=== PATIENT | male | born 1960 | race Two or more races ===

== ENCOUNTER 2020-06-04 14:25 | Outpatient (REF) | payer OTHER, SELFPAY | END 2020-06-04 14:26 | disposition home or self-care (01) | LOC: HO.BBR 14:25 | PROVIDERS: Visit Provider Internal Medicine Hematology | DX: D75.1 Secondary polycythemia (principal) | CPT/HCPCS: 85018; 99195 ==

== ENCOUNTER 2020-07-30 14:07 | Outpatient (REF) | payer OTHER, SELFPAY | END 2020-07-30 14:08 | disposition home or self-care (01) | LOC: HO.BBR 14:07 | PROVIDERS: Visit Provider Internal Medicine Hematology | DX: D75.1 Secondary polycythemia (principal) | CPT/HCPCS: 85014; 85018; 99195 ==

== ENCOUNTER 2020-10-01 14:00 | Outpatient (REF) | payer OTHER, SELFPAY | END 2020-10-01 14:01 | disposition home or self-care (01) | LOC: HO.BBR 14:00 | PROVIDERS: PCP Physician Assistant; Visit Provider Internal Medicine Hematology | DX: D75.1 Secondary polycythemia (principal) | CPT/HCPCS: 85014; 85018; 99195 ==

== ENCOUNTER 2020-12-03 14:30 | Outpatient (REF) | payer OTHER, SELFPAY | END 2020-12-03 14:31 | disposition home or self-care (01) | LOC: HO.BBR 14:30 | PROVIDERS: Visit Provider Internal Medicine Hematology | DX: D75.1 Secondary polycythemia (principal) | CPT/HCPCS: 36415; 85018; 99195 ==

== ENCOUNTER 2021-01-28 13:40 | Outpatient (REF) | payer OTHER, SELFPAY | END 2021-01-28 13:41 | disposition home or self-care (01) | LOC: HO.BBR 13:40 | PROVIDERS: Visit Provider Internal Medicine Hematology | DX: D75.1 Secondary polycythemia (principal) | CPT/HCPCS: 36415; 85018; 99195 ==

== ENCOUNTER 2021-03-02 13:48 | Outpatient (REF) | payer OTHER, SELFPAY | END 2021-03-02 13:49 | disposition home or self-care (01) | LOC: HO.BBR 13:48 | PROVIDERS: Visit Provider Internal Medicine Hematology | DX: D75.1 Secondary polycythemia (principal) | CPT/HCPCS: 85014; 85018; 99195 ==

== ENCOUNTER 2021-04-05 13:51 | Outpatient (REF) | payer OTHER, SELFPAY | END 2021-04-05 13:52 | disposition home or self-care (01) | LOC: HO.BBR 13:51 | PROVIDERS: Visit Provider Internal Medicine Hematology | DX: D75.1 Secondary polycythemia (principal) | CPT/HCPCS: 36415; 85018; 99195 ==

== ENCOUNTER 2021-05-13 12:51 | Outpatient (REF) | payer OTHER, SELFPAY | END 2021-05-13 12:52 | disposition home or self-care (01) | LOC: HO.BBR 12:51 | PROVIDERS: Visit Provider Internal Medicine Hematology | DX: D75.1 Secondary polycythemia (principal) | CPT/HCPCS: 85018; 99195 ==

== ENCOUNTER 2021-06-17 12:39 | Outpatient (REF) | payer OTHER, SELFPAY | END 2021-06-17 12:40 | disposition home or self-care (01) | LOC: HO.BBR 12:39 | PROVIDERS: Visit Provider Internal Medicine Hematology | DX: D75.1 Secondary polycythemia (principal) | CPT/HCPCS: 85018 ==

== ENCOUNTER 2021-07-21 12:32 | Outpatient (REF) | payer OTHER, SELFPAY | END 2021-07-21 12:33 | disposition home or self-care (01) | LOC: HO.BBR 12:32 | PROVIDERS: Visit Provider Internal Medicine Hematology | DX: D75.1 Secondary polycythemia (principal) | CPT/HCPCS: 85018; 99195 ==

== ENCOUNTER 2021-08-19 13:43 | Outpatient (REF) | payer OTHER, SELFPAY | END 2021-08-19 13:44 | disposition home or self-care (01) | LOC: HO.BBR 13:43 | PROVIDERS: Visit Provider Internal Medicine Hematology | DX: D75.1 Secondary polycythemia (principal) | CPT/HCPCS: 85014; 85018; 99195 ==

== ENCOUNTER 2021-11-17 12:54 | Outpatient (REF) | payer OTHER, SELFPAY | END 2021-11-17 12:55 | disposition home or self-care (01) | LOC: HO.BBR 12:54 | PROVIDERS: Visit Provider Internal Medicine Hematology | DX: D75.1 Secondary polycythemia (principal) | CPT/HCPCS: 85018; 99195 ==

== ENCOUNTER 2021-12-21 12:48 | Outpatient (REF) | payer OTHER, SELFPAY | END 2021-12-21 12:49 | disposition home or self-care (01) | LOC: HO.BBR 12:48 | PROVIDERS: Visit Provider Internal Medicine Hematology | DX: D75.1 Secondary polycythemia (principal) | CPT/HCPCS: 85018; 99195 ==

== ENCOUNTER 2022-02-01 13:08 | Outpatient (REF) | payer OTHER, SELFPAY | END 2022-02-01 13:09 | disposition home or self-care (01) | LOC: HO.BBR 13:08 | PROVIDERS: Visit Provider Internal Medicine Hematology | DX: D75.1 Secondary polycythemia (principal) | CPT/HCPCS: 85014; 85018; 99195 ==

== ENCOUNTER 2022-03-17 13:51 | Outpatient (REF) | payer OTHER, SELFPAY | END 2022-03-17 13:52 | disposition home or self-care (01) | LOC: HO.BBR 13:51 | PROVIDERS: Visit Provider Internal Medicine Hematology | DX: D75.1 Secondary polycythemia (principal) | CPT/HCPCS: 85014; 85018; 99195 ==

== ENCOUNTER 2022-04-28 13:02 | Outpatient (REF) | payer OTHER, SELFPAY | END 2022-04-28 13:03 | disposition home or self-care (01) | LOC: HO.BBR 13:02 | PROVIDERS: Visit Provider Internal Medicine Hematology | DX: D75.1 Secondary polycythemia (principal) | CPT/HCPCS: 85014; 99195 ==

== ENCOUNTER 2022-06-09 11:55 | Outpatient (REF) | payer OTHER, SELFPAY | END 2022-06-09 11:56 | disposition home or self-care (01) | LOC: HO.BBR 11:55 | PROVIDERS: Visit Provider Internal Medicine Hematology | DX: Z13.89 Encounter for screening for other disorder (principal) | CPT/HCPCS: 85018; 99195 ==

== ENCOUNTER 2022-07-25 12:41 | Outpatient (REF) | payer OTHER, SELFPAY | END 2022-07-25 12:42 | disposition home or self-care (01) | LOC: HO.BBR 12:41 | PROVIDERS: Visit Provider Internal Medicine Hematology | DX: D75.1 Secondary polycythemia (principal) | CPT/HCPCS: 85014; 99195 ==

== ENCOUNTER 2022-09-05 13:21 | Outpatient (REF) | payer OTHER, SELFPAY | END 2022-09-05 13:22 | disposition home or self-care (01) | LOC: HO.BBR 13:21 | PROVIDERS: Visit Provider Internal Medicine Hematology | DX: D75.1 Secondary polycythemia (principal) | CPT/HCPCS: 85014 ==

== ENCOUNTER 2022-10-18 13:23 | Outpatient (REF) | payer OTHER, SELFPAY | END 2022-10-18 13:24 | disposition home or self-care (01) | LOC: HO.BBR 13:23 | PROVIDERS: Visit Provider Internal Medicine Hematology | DX: D75.1 Secondary polycythemia (principal) | CPT/HCPCS: 85014; 85018; 99195 ==

== ENCOUNTER 2022-12-07 12:57 | Outpatient (REF) | payer MEDICAID, SELFPAY | END 2022-12-07 12:58 | disposition home or self-care (01) | LOC: HO.BBR 12:57 | PROVIDERS: Visit Provider Internal Medicine Hematology | DX: D75.1 Secondary polycythemia (principal) | CPT/HCPCS: 85014; 99195 ==

== ENCOUNTER 2023-01-30 11:30 | Outpatient (REF) | payer MEDICAID, SELFPAY | END 2023-01-30 11:31 | disposition home or self-care (01) | LOC: HO.BBR 11:30 | PROVIDERS: Visit Provider Internal Medicine Hematology | DX: D75.1 Secondary polycythemia (principal) | CPT/HCPCS: 85018; 99195 ==

== ENCOUNTER 2023-03-13 11:40 | Outpatient (REF) | payer MEDICAID, SELFPAY | END 2023-03-13 11:41 | disposition home or self-care (01) | LOC: HO.BBR 11:40 | PROVIDERS: Visit Provider Internal Medicine Hematology | DX: D75.1 Secondary polycythemia (principal) | CPT/HCPCS: 85018; 99195 ==

== ENCOUNTER 2023-04-24 13:23 | Outpatient (REF) | payer MEDICAID, SELFPAY | END 2023-04-24 13:24 | disposition home or self-care (01) | LOC: HO.BBR 13:23 | PROVIDERS: Visit Provider Internal Medicine Hematology | DX: D75.1 Secondary polycythemia (principal) | CPT/HCPCS: 85018; 99195 ==

== ENCOUNTER 2023-06-12 12:40 | Outpatient (REF) | payer MEDICAID, SELFPAY | END 2023-06-12 12:41 | disposition home or self-care (01) | LOC: HO.BBR 12:40 | PROVIDERS: Visit Provider Internal Medicine Hematology | DX: D75.1 Secondary polycythemia (principal) | CPT/HCPCS: 85018; 99195 ==

== ENCOUNTER 2023-07-24 12:38 | Outpatient (REF) | payer MEDICAID, SELFPAY | END 2023-07-24 12:39 | disposition home or self-care (01) | LOC: HO.BBR 12:38 | PROVIDERS: Visit Provider Internal Medicine Hematology | DX: D75.1 Secondary polycythemia (principal) | CPT/HCPCS: 85018; 99195 ==

== ENCOUNTER 2023-09-04 12:55 | Outpatient (REF) | payer MEDICAID, SELFPAY | END 2023-09-04 12:56 | disposition home or self-care (01) | LOC: HO.BBR 12:55 | PROVIDERS: Visit Provider Internal Medicine Hematology | DX: D75.1 Secondary polycythemia (principal) | CPT/HCPCS: 85014; 85018; 99195 ==

== ENCOUNTER 2023-10-17 12:34 | Outpatient (REF) | payer MEDICAID, SELFPAY | END 2023-10-17 12:35 | disposition home or self-care (01) | LOC: HO.BBR 12:34 | PROVIDERS: Visit Provider Internal Medicine Hematology | DX: D75.1 Secondary polycythemia (principal) | CPT/HCPCS: 85018 ==

== ENCOUNTER 2023-12-20 12:46 | Outpatient (REF) | payer MEDICARE, MEDICAID, SELFPAY | END 2023-12-20 12:47 | disposition home or self-care (01) | LOC: HO.BBR 12:46 | PROVIDERS: Visit Provider Internal Medicine Hematology | DX: D75.1 Secondary polycythemia (principal) | CPT/HCPCS: 85014; 85018; 99195 ==

== ENCOUNTER 2024-02-19 12:36 | Outpatient (REF) | payer MEDICARE, MEDICAID, SELFPAY | END 2024-02-19 12:37 | disposition home or self-care (01) | LOC: HO.BBR 12:36 | PROVIDERS: Visit Provider Internal Medicine Hematology | DX: D75.1 Secondary polycythemia (principal) | CPT/HCPCS: 85014; 85018; 99195 ==

== ENCOUNTER 2024-04-15 12:54 | Outpatient (REF) | payer MEDICARE, MEDICAID, SELFPAY | END 2024-04-15 12:55 | disposition home or self-care (01) | LOC: HO.BBR 12:54 | PROVIDERS: Visit Provider Internal Medicine Hematology | DX: D75.1 Secondary polycythemia (principal) | CPT/HCPCS: 85014; 85018; 99195 ==

== ENCOUNTER 2024-06-17 12:58 | Outpatient (REF) | payer MEDICAID, SELFPAY | END 2024-06-17 12:59 | disposition home or self-care (01) | LOC: HO.BBR 12:58 | PROVIDERS: Visit Provider Internal Medicine Hematology | DX: D75.1 Secondary polycythemia (principal) | CPT/HCPCS: 85018; 99195 ==

== ENCOUNTER 2024-08-19 12:35 | Outpatient (REF) | payer MEDICARE, MEDICAID, SELFPAY | END 2024-08-19 12:36 | disposition home or self-care (01) | LOC: HO.BBR 12:35 | PROVIDERS: Visit Provider Internal Medicine Hematology | DX: D75.1 Secondary polycythemia (principal) | CPT/HCPCS: 85014; 85018; 99195 ==

== ENCOUNTER 2024-10-25 08:55 | Outpatient (REF) | payer MEDICARE, MEDICAID, SELFPAY ==
--- OUTSIDE RECORDS SUMMARY | 2024-10-25 09:23 | XMS_ITS | Clinical Summary ---
Author Organization [facility] Address [address] [place] [phone] Care Team Providers Care Nutrition Services Assistant Name Role Phone Bronwyn Albert Primary Care Provider Family History Medical History Relation Name Comments Autoimmune disease Neg Hx Breast cancer Neg Hx Colon cancer Neg Hx Coronary artery disease Neg Hx Diabetes Neg Hx Heart attack Neg Hx Heart failure Neg Hx Hyperlipidemia Neg Hx Hypertension Neg Hx Mental illness Neg Hx Prostate cancer Neg Hx Sleep apnea Neg Hx Thyroid disease Neg Hx Social History Tobacco Use Types Packs/Day Years Used Date Smoking Tobacco: Never Smokeless Tobacco: Never Alcohol Use Standard Drinks/Week Comments Not Asked 0 (1 standard drink = 0.6 oz pur e alcohol) Sex and Gender Information Value Date Recorded Sex Assigned at Not on file Legal Sex Male 6:21 AM EST Gender Identity Not on file Sexual Orientation Not on file Obstetrics History Plan of Treatment Health Maintenance Due Date Last Done Comments DTaP,Tdap,and Td Vaccines (1 - Tdap) 1977 Pneumococcal Vaccine: 50+ Ye ars (1 of 1 - PCV) 2008 Zoster Vaccines (1 of 2) 2008 COVID-19 Vaccine ( - 2023-2 5 season) 2024 Influenza Vaccine (#1) 2024 RSV Immunization Patients 60 + Years Old (1 - 1-dose 75+ series) 2033 HIB Vaccines Aged Out No longer eligi ble based on patient's age to complete this topic HPV Vaccines Aged Out No longer eligi ble based on patient's age to complete this topic Hepatitis A Vaccines Aged Out No long er eligible based on patient's age to complete this topic Hepatitis B Vaccines Aged Out No long er eligible based on patient's age to complete this topic IPV Vaccines Aged Out No longer eligi ble based on patient's age to complete this topic MMR Vaccines Aged Out No longer eligi ble based on patient's age to complete this topic Meningococcal ACWY Vaccine Aged Out N o longer eligible based on patient's age to complete this topic Meningococcal B Vacine Aged Out No lo nger eligible based on patient's age to complete this topic Pneumococcal Vaccine: Pediat rics (0 to 5 Years) and At-Risk Patients (6 to 64 Years) Aged Out No longer eligible b ased on patient's age to complete this topic RSV Immunization Patients Un julisa 20 months Aged Out No longer eligible b ased on patient's age to complete this topic Varicella Vaccines Aged Out No longer eligible based on patient's age to complete this topic Care Teams Nutrition Services Assistant Relationship Specialty Start Date End Date Bronwyn Albert PA [address] [place] [address] PCP - General Internal Medicine 01/19/10
--- OUTSIDE RECORDS SUMMARY | 2024-10-25 09:23 | XMS_ITS | Encounter Summary ---
Author Organization [facility] Address [address] [place] [address] Care Team Providers Care Physical Metallurgist Name Role Phone Bronwyn Albert PA-C Primary Care Provider + [phone] Reason for Visit * Reason Comments Correspondence [facility] Encounter Details Date Type Department Care Team ([facility] Contact Info) Description 01/26/2016 Interim Notes [address] [phone] Ping Amaro [phone] [place] [address] Social History Tobacco Use Types Packs/Day Years Used Date Smoking Tobacco: Never Smokeless Tobacco: Never Alcohol Use Standard Drinks/Week Comments No 0 (1 standard drink = 0.6 oz pur e alcohol) Sex and Gender Information Value Date Recorded Sex Assigned at Male 06/15/2017 7:21 PM PDT Legal Sex Male 11:36 AM PDT Gender Identity Male 06/15/2017 7:21 PM PDT Sexual Orientation Straight 06/15/2017 7: 21 PM PDT documented as of this encounter Plan of Treatment Upcoming Encounters Date Type Department Care Team (Late Contact Info) Description 12/13/2024 1:20 PM EDT Office Visit [address] [phone] Vicente Connor, RadhaD [facility] [place] [address] Cynthia Hackett [address] [place] [address] documented as of this encounter Visit Diagnoses Not on filedocumented in this encounter Additional Health Concerns Infection Onset Date Last Indicated Resolved Time COVID-19 Comment:Added automatically based on visit diagnosis/problem list. 08/13/2020 08/13/2020 11/11/2020 7:10 PM PDT documented as of this encounter Care Teams Physical Metallurgist Relationship Specialty Start Date End Date Bronwyn Albert PA-C [address] [place] [phone] PCP - General Internal Medicine 10/30/13 documented as of this encounter
--- OUTSIDE RECORDS SUMMARY | 2024-10-25 09:23 | XMS_ITS | Encounter Summary ---
Author Organization [facility] Address [address] [place] [address] Care Team Providers Care Leather Dresser Name Role Phone Bronwyn Albert PA-C Primary Care Provider + [phone] Reason for Visit * Reason Comments Hypertension Encounter Details Date Type Department Care Team ([facility] st Contact Info) Description 10/17/2024 10:00 AM EST Office Visit [facility] [address] [place] [address] Vicente Connor, PharmD [address] [place] [address] Cynthia Hackett [address] [place] [address] Essential hypertension, benign (Primary Dx); History of stroke; Class 2 severe obesity due to excess calories with serious comorbidity and body mass index (BMI) of 35.0 to 35.9 in adult ([facility]); Medication management Social History Tobacco Use Types Packs/Day Years Used Date Smoking Tobacco: Never Smokeless Tobacco: Never Tobacco Cessation:Counseling Given: Not Answered Alcohol Use Standard Drinks/Week Comments No 0 (1 standard drink = 0.6 oz pur e alcohol) Social Connections Answer Date Recorded Connectedness 1 03/06/2024 Financial Resource Strain Answer Date R ecorded Financial Resource Strain 1 2023 Stress Answer Date Recorded Stress 03/06/2024 Physical Activity Answer Date Recorded Physical Activity 0 04/17/2019 Food Insecurity Answer Date Recorded Food 1 03/06/2024 Transportation Needs Answer Date Record ed Transportation 03/06/2024 Housing Stability Answer Date Recorded Housing 1 03/06/2024 Safety and Environment Answer Date Mesfin rded Safety 0 04/17/2019 Utilities Answer Date Recorded Utilities 1 03/06/2024 Employment Answer Date Recorded Stress 0 03/06/2024 Sex and Gender Information Value Date Recorded Sex Assigned at Male 06/15/2017 7:21 PM PDT Legal Sex Male 11:36 AM PDT Gender Identity Male 06/15/2017 7:21 PM PDT Sexual Orientation Straight 06/15/2017 7: 21 PM PDT documented as of this encounter Last Filed Vital Signs Vital Sign Reading Time Taken Comments Blood Pressure 138/88 10/17/2024 10:08 AM EST Pulse 60 10/17/2024 10:08 AM EST Temperature - - Respiratory Rate 16 10/17/2024 10:08 AM EST Oxygen Saturation 97% 10/17/2024 10:08 AM EST Inhaled Oxygen Concentration - - Weight 98.9 kg (218 lb) 10/17/2024 10:08 AM EST Height 167.6 cm (5' 6 ) 10/17/2024 10:08 AM EST Body Mass Index 35.19 10/17/2024 10:08 AM EST documented in this encounter Progress Notes * Radha ArthurD - 10/17/2024 10:15 AM EST Bereket Mchugh is a 63 year old, [place]ib[place]ian-speaking male who presents today for a follow-up visitin Hypertension Clinic with Radha ArthurD. Referred by Bronwyn Albert PA-C. Cynthia Hackett (Djiboutian/Stateless) interpreted for today's visit. is present and assisting with interpretation during this in-person visit. Accompanied by: None HPI: Patient reports: Endorses use of anti-hypertensive medications daily as directed, denies missing doses or taking extra doses. Experiencing left-sided chest discomfort 3 days ago, lasting for 1-5 minutes. Reports occurring around noontime. Reports possibly due to cold weather and changes in weather. Denies any recent anxiety. Continues to monitor BP twice daily, brings in BP log. Reports monitoring BP in the morning 1 hour after anti-hypertensive medications. Continues to follow low-sodium diet. Hx of JULIA, although reports hx of intolerance to multiple CPAP machines, therefore is currently nottreated for JULIA. Reports sleeping well during the night. No hx of US renal (referral sent 10/09/17, pt denies completing) or metanephrines. No records from [facility] since 2019. New concerns: None ROS (last 1-2 weeks): Chest pain/chest tightness Yes see patient reports , dizziness/lightheadedness No, shortness of breath No, blurry vision No, headaches No, palpitations No, peripheral edema No. 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 ASCVD Patient has the following risk factors/co-morbidities for hypertension: Dyslipidemia, Family History, Obesity, and Stroke Hx of stroke/NM/HF/CAD? yes 2 strokes (2000, 2001) Family cardiac hx: father HTN Tobacco Use: Former Smoker: Quit 40 years ago Tobacco Intervention:provided smoking cessation counseling Alcohol Use: No alcohol use Pharmacotherapy: Current anti-hypertensive pharmacological regimen: HCTZ 25 mg daily in AM Valsartan 320 mg daily every evening Spironolactone 25 mg daily in AM Previous anti-hypertensives and reason for discontinuation: Valsartan-HCTZ (D/C 09/12/24) due to components Metoprolol tartrate (D/C 09/12/24) due to bradycardia/lack of benefit in post- stroke patients Amlodipine (D/C 10/03/23) due to possible adverse events Olmesartan-HCTZ (D/C 09/18/23) due to possible cause of skin rash , transitioned to valsartan-HCTZ Metoprolol succinate (D/C 07/17/23) due to bradycardia/lack of benefit in post- stroke patients Valsartan-HCTZ (D/C 02/19/21) due to unclear reason, transitioned to olmesartan-HCTZ Lisinopril-HCTZ (D/C 02/16/21) due to c/o lower lip swelling, transitioned to valsartan-HCTZ Additional OTC medications or supplements: None Home BP monitoring: Patient reports checking blood pressure at home 2 times per day. BP readings: 10/15/24 AM: 138/82 mmHg 60 bpm; PM: 145/85 mmHg 62 bpm 10/14/24 AM: 131/79 mmHg 59 bpm; PM: 138/82 mmHg 60 bpm 10/13/24 AM: 149/86 mmHg 58 bpm; PM: 129/80 mmHg 65 bpm 10/12/24 AM: 144/81 mmHg 61 bpm; PM: 152/89 mmHg 58 bpm 10/11/24 AM: 129/86 mmHg 69 bpm; PM: 149/90 mmHg 61 bpm OBJECTIVE Last 3 BP Readings: Date: BP: 10/17/2024 138/88 09/12/2024 130/80 08/13/2024 124/72 Wt Readings from Last 3 Encounters: 10/17/24 218 lb (98.9 kg) 09/12/24 217 lb (98.4 kg) 08/13/24 213 lb (96.6 kg) Allergies reviewed: Allergies Allergen Reactions Sanchez Inhibitors 02/16/2021 c/o lower lip swelling Amlodipine Lip swelling Ibuprofen SOB Topiramate Rash Dust Other Severe Estimated Creatinine Clearance: 83.3 mL/min (by C-G formula based on SCr of 0.98 mg/dL). Lab Results Component Value Date NA 139 03/06/2024 K 3.8 03/06/2024 BUN 13 03/06/2024 BUNCREAT SEE NOTE: 03/06/2024 CREATININE 0.98 03/06/2024 EGFR 86 03/06/2024 Lab Results Component Value Date TSH 1.70 03/06/2024 Lab Results Component Value Date TRIGLYC 270 (H) 03/06/2024 CHOL 178 03/06/2024 HDL 45 03/06/2024 LDL 94 03/06/2024 CHOLHDL 4.0 03/06/2024 NONHDL 133 (H) 03/06/2024 The ASCVD Risk score (Marii YI, et al., 2019) failed to calculate for the following reasons: Risk score cannot be calculated because patient has a medical history suggesting prior/existing ASCVD ASSESSMENT BP target: Per ACC/AHA guidelines, for older adults (=65 years of age) with hypertension and a highburden of comorbidity and limited life expectancy, clinical judgment, patient preference, and a team-based approach to assess risk/benefit is reasonable for decisions regarding intensity of BP lowering and choice of antihypertensive drugs. Hypertension - slightly uncontrolled No medication therapy problems identified Na, K, Ca, Scr, eGFR: WNL as of 03/06/24 BP monitorin times per week PLAN I10 Essential hypertension, benign (primary encounter diagnosis) Hypertension - slightly uncontrolled. Counseled patient to monitor BP two times daily and document in BP log. Will reach out to PCP regarding issuing US renal and metanephrines to rule out secondary causes of HTN. Patient has hx of JULIA, intolerance to CPAP. Pharmacologic RX: HCTZ 25 mg daily in AM Valsartan 320 mg daily every evening Spironolactone 25 mg daily in AM If BP hypertensive, next step: increase spironolactone to 50 mg daily Z86.73 History of stroke Stable, continue aspirin 81 mg daily and rosuvastatin 10 mg daily at bedtime. E66.812,E66.01,Z68.35 Class 2 severe obesity due to excess calories with serious comorbidity and body mass index (BMI) of 35.0 to 35.9 in adult ([facility]) Lifestyle measures:BMI follow up plan: The patient was counseled regarding nutrition and physical activity. Counseled patient on importance of diet and lifestyle (weight loss, low-sodium (STALLWORTH) diet,decrease carbohydrates such as rice, bread, pasta and corn meal, increase non-starchy vegetables, no potatoes or corn, increase protein, and increase physical activity with at least 150 minutes of moderate physical activity per week). Z79.899 Medication management Medications reviewed and reconciled with patient. Follow-up appt scheduled on 12/13/24 @1:20 PM. EDUCATION PROVIDED: Counseled patient to continue lifestyle modifications: weight reduction, diet, and exercise/physical activity. Proper conditions for taking blood pressure. Factors to also consider that may affect BP include, smoking, caffeine, alcohol use, pain, and exercise. Seeking emergency treatment if persistent chest pain, blurry vision, and/or palpitations and BP >180/110 mmHg. Medication(s): (indication, dosage, administration, storage, side effects, missing dose) Production Control Coordinating Clerk Complications of Uncontrolled Hypertension Vicente Connor PharmD documented in this encounter Miscellaneous Notes * Patient Instructions - Vicente Connor PharmD - 10/17/2024 10:38 AM EST William Connor PharmD, [facility] Clinical Pharmacist Press 1 for Malay Enter extension [phone] They will not ask you what extension you want to reach, so just enter extension. You may leave me a message if I do not answer. Please state your name, date of and call back number If you are not able to keep your appointment please call 24-48 hours before your appointment to cancel or reschedule. documented in this encounter Plan of Treatment Upcoming Encounters Date Type Department Care Team (Late st Contact Info) Description 12/13/2024 1:20 PM EDT Office Visit [facility] [address] [place] [phone] Vicente Connor PharmD [address] [place] [phone] Cynthia Hackett [address] [place] [address] documented as of this encounter Visit Diagnoses Diagnosis Essential hypertension, benign- Primary History of stroke Transient ischemic attack (TIA), and cerebral infarction without residual deficits Class 2 severe obesity due to excess calories with serious comorbidity and body mass index (BMI) of 35.0 to 35.9 in adult ([facility]) Medication management Encounter for long-term (current) use of other medications documented in this encounter Additional Health Concerns Assessment Noted Time PHQ-9 Depression Total Score: 0 03/06/20 24 10:09 AM PDT documented as of this encounter Care Teams Leather Dresser Relationship Specialty Start Date End Date Bronwyn Albert PA-C [facility] [place] [phone] PCP - General Internal Medicine 10/30/13 documented as of this encounter
--- OUTSIDE RECORDS SUMMARY | 2024-10-25 09:23 | XMS_ITS | Clinical Summary ---
Author Organization [facility] Address [address] [place] [address] Care Team Providers [facility] Account Liaison Name Role Phone Bronwyn Albert PA-C Primary Care Provider [phone] Source Comments PLEASE NOTE, if this patient is a minor, it may be UNLAWFUL to discuss sensitive information that is contained in these records (such as FAMILY PLANNING, MENTAL HEALTH or SUBSTANCE ABUSE) with the minor patient's parent or other person without the patient's specific authorization.[facility] Allergies Active Allergy Reactions Criticality Noted Date Comments Sanchez Inhibitors High 02/16/2021 02/16/2021 c/o lower lip swelling Amlodipine High 10/03/2023 Lip swelling Dust Other Severe 01/23/2014 Ibuprofen SOB High 05/15/2013 Topiramate Rash High 05/15/2013 Medic[address] aspirin [address] tabletIndication s:Essential hypertension Take 1 Tablet by mouth once daily 90 Tablet 3 3 Active EPINEPHrine (EPIPEN) 0.3 mg/0.3 mL pen injectorIndicati ons:Angiotensin converting enzyme inhibitor-aggrav ated angioedema, initial encounter Inject 0.3 mL into the muscle as needed for anaphylaxis 2 Each 3 3 Active aspirin-acetamin ophen-caffeine (EXCEDRIN MIGRAINE) 250-250-65 mg per tabletIndication s:Mixed headache Take 1 Tablet by mouth 3 (three) times daily No allergy to aspirin 90 Tablet 4 4 Active rosuvastatin (CRESTOR) 10 mg tabletIndication s:Pre-diabetes TAKE 1 TABLET BY MOUTH EVERY NIGHT AT BEDTIME 90 Tablet 3 4 Active loratadine (CLARITIN) 10 mg tabletIndication s:Urticaria Take 1 Tablet by mouth nightly at bedtime 90 Tablet 1 4 Active cyanocobalamin (VITAMIN B-12) 1,000 mcg/mL injectionIndicat ions:Low serum vitamin B12 INJECT 1 ML INTO THE SKIN EVERY 3 MONTHS 10 mL 11 4 Active rizatriptan (MAXALT) 5 mg tabletIndication s:Mixed headache TAKE 1 TABLET BY MOUTH 1 TIME FOR UP TO 1 DOSE NEEDED FOR MIGRAINE 9 Tablet 11 4 Active BD LUER-BENY SYRINGE 3 mL 25 gauge x 1 Indications:Lo w serum vitamin B12 USE EVERY MONTH FOR B12 INJECTION 1 Each 11 4 Active omeprazole (PRILOSEC) [address] capsuleIndicatio ns:Dyspepsia TAKE 1 CAPSULE BY MOUTH TWICE DAILY. DO NOT CRUSH OR CHEW 180 Capsule 2 4 Active lidocaine (LIDODERM) 5 % patch Apply 1 patch to the affected area for a maximum of 12 hours, followed by removal for 12 hours. 30 Patch 4 4 Active diclofenac sodium (VOLTAREN) 1 % gel Apply 2 g topically 2 (two) times daily 100 g 11 4 Active ciclopirox (PENLAC) 8 % solution 4 Active betamethasone valerate (VALISONE) 0.1 % creamIndications :Dyshidrotic eczema APPLY THIN LAYER TOPICALLY TO THE AFFECTED AREA TWICE DAILY 90 g 3 4 Active magnesium oxide (MAG-OX) 400 mg (241.3 mg magnesium) tablet Take 1 Tablet by mouth once daily 4 Active GAVILYTE-G 236-22.74-6.74 -5.86 gram solution 5 Active vitamin B complex capsule Take 1 Capsule by mouth once daily 4 Active lidocaine (XYLOCAINE) 5 % oint APPLY TOPICALLY TO THE AFFECTED AREA THREE TIMES DAILY 4 Active valsartan (DIOVAN) 320 mg tabletIndication s:Essential hypertension, benign Take 1 Tablet by mouth every evening stop valsartan-HCTZ combination 90 Tablet 1 5 Active hydroCHLOROthiaz esau (HYDRODIURIL) 25 mg tabletIndication s:Essential hypertension, benign Take 1 Tablet by mouth every morning stop valsartan-HCTZ combination 90 Tablet 1 5 Active spironolactone (ALDACTONE) 25 mg tabletIndication s:Essential hypertension, benign Take 1 Tablet by mouth every morning For blood pressure. 90 Tablet 1 5 Active clonazePAM (KLONOPIN) 1 mg tabletIndication s:Anxiety and depression TAKE 1 TABLET BY MOUTH TWICE DAILY 60 Tablet 2 5 Active Active Problems Problem Noted Date Diagnosed Date History of stroke 06/07/2023 Overview (06/07/2023): 2000 & 2001 per patient reports History of COVID-19 07/22/2020 05/26/2021 B12 deficiency due to diet 02/16/2021 Right upper lobe of lung [place] chest 07/22/2020 (incidenal finding with COVID19 hospitalization(, repeat 3 months 08/13/2020 Chronic seasonal allergic rhinitis due to pollen 06/15/2017 Lumbar disc disease 06/15/2017 Primary osteoarthritis involving multiple joints 07/06/2016 Pre-diabetes 01/29/2015 Right shoulder pain, x-ray 12/24/2014 12/28/2014 Overview (11/10/2017): Result type: MRI Joint Ext Upper W/O Contrast Right Result date: 07 February 2015 12:23 Result status: Auth (Verified) Result title: MRI Joint Ext Upper W/O Contrast Right Performed by: Ankit Galindo MD on 09 February 2015 11:16 Verified by: Ankit Galindo MD on 09 February 2015 11:16 Encounter info: [id number], [facility], [facility], 02/07/2015 - 02/14/2015 * Final Report * Reason For Exam ? RCT PAIN/INSTABILITY;? RCT PAIN/INSTABILITY RESULT: MRI Joint Ext Upper W/O Contrast Right [facility] VISIT NUMBER :[id number] Patient Name : Abby Salazar Date of : 1960 Date of Exam : 02/07/2015 Referring Physician : JOSHUA ORDONEZ [address], Attn: [place] [address] Exam : MR - SHOULDER (C-) CPT 90157 - RIGHT Room Description : [facility] 2 1.5 Technique : Ax PD Fsat, Cor T2, Cor PD Fsat, Sag PD Fsat, Sag T1 Final Report Shoulder MRI Clinical History: Shoulder pain. Instability Findings: There is a moderate degree of degenerative change of the acromioclavicular joint. Capsular hypertrophy and spurring is noted at the AC joint. There is a small subacromial/subdeltoid bursitis. Full-thickness tear involving mid footprint fibers of the supraspinatus tendon on image 12 of series 5. Tear extends posteriorly as a partial-thickness articular surface tear. In aggregate the tear measures approximately 1.1 cm AP. Maximum retraction of approximately 0.5 cm. The infraspinatus tendon is intact. There is infraspinatus tendinopathy. The teres minor tendon is intact . Limited evaluation of the subscapularis tendon due to motion on the axial images. Grossly the subscapularis tendon is intact with possible intermediate to high grade perforating type tears along the articular surface at the level of the coracohumeral interval on image 8 of series 6. The long head of the biceps tendon is intact. Tendinopathy is noted within the intra-articular portion. The glenoid labrum is not well evaluated on this non-arthrogram MR, but appears grossly intact . Impression: Full-thickness tear of the supraspinatus tendon as outlined above. Infraspinatus tendinopathy. Limited evaluation of the subscapularis tendon due to motion on the axial images. Within this limitation, possible intermediate to high-grade perforating type tears are noted within distal subscapularis tendon fibers on the images outlined above. Tendinopathy within the intra-articular portion of the biceps tendon ----- PHYSICIAN : ANKIT GALINDO (Signature on file) 02/09/2015 Signature Line Dictated By: Ankit Galindo MD Dictated Date/Time: 02/09/15 11:16 a Reviewed By: Ankit Galindo MD Signed By: Ankit Galindo MD Signed Date/Time: 02/09/15 11:16 am Transcribed By: TS Transcribed Date/Time: 02/09/15 11:16 am MRI Joint Ext Upper W/O Contrast Right This document has an image Result type: Shoulder Min 2 Views Right Result date: 24 December 2014 11:06 Result status: Auth (Verified) Result title: Shoulder Min 2 Views Right Performed by: Amalia Walters MD on 24 December 2014 11:14 Verified by: Amalia Walters MD on 24 December 2014 11:14 Encounter info: [id number], [facility], One Time OP, 12/24/2014 - 12/24/2014 * Final Report * Reason For Exam shoulder pain RESULT: Shoulder Min 2 Views Right Shoulder Min 2 Views Right INDICATION: shoulder pain COMPARISON: There are no prior studies available for comparison. FINDINGS: There is no evidence of acute displaced fracture or glenohumeral dislocation. There is mild acromioclavicular degenerative change bony proliferation of the distal clavicle. There is smooth periosteal new bone formation at the lateral proximal humeral diaphysis, likely reflecting enthesopathy at the deltoid attachment. No radiopaque foreign bodies. IMPRESSION: 1. No evidence of acute displaced fracture. 2. Mild acromioclavicular degenerative change. 3. Smooth periosteal new bone formation on the proximal lateral humeral diaphysis which likely represents enthesopathy at the deltoid attachment. Signature Line Dictated By: Amalia Walters MD Dictated Date/Time: 12/24/14 11:14 a Reviewed By: Amalia Walters MD Signed By: Amalia Walters MD Signed Date/Time: 12/24/14 11:14 am Transcribed By: AKILA Transcribed Date/Time: 12/24/14 11:14 am Shoulder Min 2 Views Right This document has an image Dyshidrotic eczema of hands 06/05/2014 Snoring, 02/2014 PSM: normal 04/03/2014 Overview (04/03/2014): Result type: Polysomnogram Study Result date: 10 March 2014 16:41 Result status: Auth (Verified) Result title: Polysomnogram Performed by: Navya Kohli MD on 10 March 2014 16:41 Verified by: Navya Kohli MD on 11 March 2014 11:18 Encounter info: [id number], [facility], [facility], 02/23/2014 - 02/23/2014 Contributor system: [employer] * Final Report * Polysomnogram (Verified) POLYSOMNOGRAM DATE:02/23/2014 [facility] SLEEP PROGRAM [facility] Accredited by the [place] [employer] Referring Provider: Morgan Holley M.D. Date of Study: 02/23/2014 Order ID: [id number] INTRODUCTION: This 53 year-old male is referred with polycythemia. The sleep questionnaire noted snoring, witnessed apneas, gasping arousals, unrefreshing sleep, nasal congestion, dry mouth, feeling paralyzed on awakening, and difficulty initiating and maintaining sleep. [place] sleepiness scale is 7. The height is 66 inches. The weight is 220.0 lbs. The BMI is 35.8. MEDICATIONS: Amlodipine, Metoprolol, Atorvastatin, Fluticasone, Amoxicillin, Gabapentin, Lisinopril-Hydrochlorothiazide, Aspirin, Nitrostat, Tamsulosin , Indomethacin, Omeprazole, Rizatriptan, Klonopin. DESCRIPTION: This overnight polysomnogram was done utilizing a [employer] digital polysomnograph machine. Four channels of EEG for sleep scoring, 2 channels for electrooculograms, left and right respectively, 1 for chin EMG, 2 channels for left and right anterior tibialis EMG, respectively, 1 for EKG, 1 for combined nasal and airflow monitoring, 1 for nasal pressure transducer, 1 for intercostal EMG, 1 channel for thoracic strain gauge, 1 for abdominal strain gauge, 1 for end-tidal CO2 monitoring and oximetry on the last channel to monitor arterial oxygen saturation. The paper speed was set at 10 mm/sec; the low linear filter setting was 1 Hz; high linear 70 Hz for the EEG channels and appropriate bandwidths were set for the other channels. Sleep was scored by 30-second epochs according to the AASM Manual for the Scoring of Sleep and Associated Events: Rules, Terminology, and Technical Specifications v. 2.0.3, 2014. SLEEP ARCHITECTURE: Lights were turned out at 11:12:53 PM. The total recording time was 369.5 minutes with a total sleep time of 324.5 minutes. The sleep efficiency was 87.8%. The sleep maintenance was 93.4%. The sleep latency was 15.3 minutes. The REM latency was 83.5 minutes. Sleep architecture revealed 3.5% of total sleep time in Stage 1, 81.0% in Stage 2, 0.0% in Stage 3, and 15.4% in REM sleep. POSITION: The patient spent 0.0 minutes of sleep time in the supine position with 0.0 minutes of supine REM. RESPIRATORY MEASURES: There were 0 obstructive apneas, 0 mixed apneas, 0 central apneas, and 3 hypopneas, the longest of which was 18.2 seconds. The apneas-hypopnea index was 0.6 per hour. The REM AHI was 1.2 per hour and the NREM AHI was 0.4 per hour. The supine AHI is - per hour. The number of arousals was 11 for an arousal index of 2.0. Snoring was mild. Bruxism: None. The average arterial saturation during wakefulness was 94.5% and during sleep was 94.0%. The lowest arterial oxygen saturation during sleep was 88.8%. The number of minutes with SaO2 less than 89% was 0.0 minutes. END-TIDAL CO2: The maximum ETCO2 during wakefulness is 44.5 Torr with an average of 38.9 Torr. The max ETCO2 during sleep was 44.8 Torr with an average of 40.4 Torr. EKG: Sinus rhythm with an average heart rate of 52.5, range 43.0-78.0 bpm. Arrhythmia: None. EEG: The waking background was 9 Hz. LIMB MOVEMENTS: There were 0 periodic limb movements with 0 PLMs associated with arousals for a PLM arousal index of 0.0 per hour. PATIENT? S ASSESSMENT OF NIGHT: I slept ok , stated the pt. INTERPRETATION: Sleep architecture and staging was normal. There was normal breathing throughout lateral REM and NREM with saturations around 94% with some mild snoring and flow limitation at times but no significant obstruction. There was no supine sleep so the degree of sleep disordered breathing could be underestimated. DIAGNOSTIC CLASSIFICATION: AXIS A: 1. Snoring, mild (327.20). AXIS B: 1. Polysomnogram. AXIS C: 1. HTN, migraines, gastric reflux, polycythemia. RECOMMENDATIONS: 1. There was no significant sleep disordered breathing sleep in lateral position but if sleep apnea is still suspected a repeat sleep study can be performed in supine position otherwise recommend continuing with lateral sleep. Dictated by: Navya Kohli M.D. Signing Clinician: Navya Kohli M.D. Dictated: 03/10/2014 16:41:33 Transcribed: 03/10/2014 20:14:02 Transcribed by: MARILYN DocID: [id number] PRELIMINARY REPORT UNLESS MANUALLY/ELECTRONICALLY SIGNED CC:Morgan Holley M.D. Resident - Hem/Onc PGY4 [id number] [place], [address] Bronwyn RATLIFF [facility] [address] [place], [address] Aureliano Castaneda M.D. [facility] - Hem/Onc [address] [place], [address] BPH (benign prostatic hyperplasia) s/p TURP 12/27 Mild vitamin D deficiency 05/15/2013 Essential hypertension, benign Overview (11/10/2017): Result type: VL Renal Artery Doppler Result date: October 30, 2017 10:00 Result status: Modified Result title: VL Duplex Renal Artery Performed by: Ryan Mendes MD on October 30, 2017 10:00 Verified by: Ryan Mendes MD on October 30, 2017 10:00 Encounter info: [id number], [facility], One Time OP, 10/30/2017 - 10/30/2017 Contributor system: [employer] * Final Report * VL Duplex Renal Artery Renal and Arterial Duplex Complete Renal Demographics Patient Name MARIE MORA Date of Study 10/30/2017 Corporate Gender Male Facility Race Unknown Ethnicity Date of 1960 Height Age 56 Weight Accession Number [id number] BSA Room Number BMI Referring Physician Bebe RATLIFF Interpreting Ryan Mendes MD Physician [employer] Machine Setter Elida Milian RVT Indications Type of Study: Abdominal: Renal, Arterial Duplex Complete Renal. Indications for Study:Renal hypertension. Patient Status:Routine. Study Location:[address]. Technical Quality:Good visualization. Probe:C5-1 MHZ. Findings Velocities are measured in cm/s ; Diameters are measured in cm Abdominal Aortic Flow + +---+---+-------+ + !Location !PSV!EDV!AP Diam!Trans Diam! + +---+---+-------+ + !Aorta Juxta Renal!72 !26 ! ! ! + +---+---+-------+ + Renal Duplex Measurements + ++-----+----+----+----++---+----+----+----+ !Renal Artery A!!Right! !Left! !! ! ! ! ! + ++-----+----+----+----++---+----+----+----+ !Location !!PSV !EDV !RI !RAR !!PSV!EDV !RI !RAR ! + ++-----+----+----+----++---+----+----+----+ !Prox Renal !!127 !47.2!0.63!1.76!!138!47.2!0.66!1.92! + ++-----+----+----+----++---+----+----+----+ !Mid Renal !!138 !55.5!0.6 !1.92!!122!48 !0.61!1.69! + ++-----+----+----+----++---+----+----+----+ !Dist Renal !!105 !46.3!0.56!1.46!!111!42.9!0.61!1.54! + ++-----+----+----+----++---+----+----+----+ Parenchymal Flow + ++-----+---+----++---+---+----+ !Kidney !!Right! !Left!! ! ! ! + ++-----+---+----++---+---+----+ !Location !!PSV !EDV!RI !!PSV!EDV!RI ! + ++-----+---+----++---+---+----+ !Upper Pole Arcuate!!17 !7 !0.59!!22 !10 !0.55! + ++-----+---+----++---+---+----+ !Mid Arcuate !!23 !11 !0.52!!22 !9 !0.59! + ++-----+---+----++---+---+----+ !Lower Pole Arcuate!!20 !8 !0.6 !!18 !8 !0.56! + ++-----+---+----++---+---+----+ Right Measurements - The kidney length is 12.8 cm. Left Measurements - The kidney length is 13.4 cm. Conclusions Summary Right side: There is no evidence of stenosis within the Renal Artery, based on peak systolic velocities and Renal / Aortic Ratio. The Renal/ Aortic Ratio is normal . Renal parenchymal size is normal . The Right Renal Vein is patent. Left Side: There is no evidence of stenosis within the Renal Artery based upon peak systolic velocities and Renal / Aortic Ratio. The Renal/Aortic Ratio is normal . Renal parenchymal size is normal . The left Renal Vein is patent. Signature VL Duplex Renal Artery This document has an image Cerebral infarction ([facility]) S/P colonoscopy/EGD 2004 (neg) Hemorrhoids, external Hyperlipemia, mixed Class 2 severe obesity due t o excess calories with serious comorbidity and body mass index (BMI) of 35.0 to 35.9 in adult ([facility]) Mixed headache Anxiety and depression Dyspepsia Polycythemia vera ([facility]) Overview (04/04/2018): Result type: Hematology/Oncology Note Office Result date: February 21, 2018 14:16 EDT Result status: Modified Result title: F/U: Secondary Erythrocytosis Performed by: Harman PEREZ, MPH, Gail on February 21, 2018 14:33 EDT Verified by: Harman PEREZ, MPH, Gail on February 21, 2018 15:00 EDT Encounter info: [id number], [facility], Recurring OP, 02/20/2018 - Document Contains Addenda F/U: Secondary Erythrocytosis Patient: ABBY SALAZAR Age: 57 years Sex: Male : 1960 Associated Diagnoses: None Author: Harman PEREZ, MPH, [facility] Visit Information Date of service: February 21, 2018 DIAGNOSIS: 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 CURRENT THERAPY: PRN Phlebotomy - last was 01/18/18 for a HgB of 15.9, 150 mL removed. PRIOR THERAPY: Phlebotomy. Most recently ordered for 150 cc every 2-3 months for a target hemoglobin of less than 15 g. In the past, he was requiring phlebotomy of about 500 cc every 2-3 months for a target hematocrit of less than 45%. From my review, he had not required phlebotomy since December 2015 until August 2017. Interim history: Mr. Salazar presents today for follow-up. He is accompanied by the Welsh translator/interpreter. He is feeling well but thinks that may be his hemoglobin is creeping up because he noticed some increased redness in his nose. He denies any new neuropathy. 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 He reports feeling much better when he gets phlebotomy and knows that it is time for phlebotomy when he gets chest discomfort and a headache. As soon as he gets the phlebotomy, the symptoms resolved. He denies headache today but says that he does have headache intermittently. Past Medical History: Prostate cancer status post surgery followed by hormonal therapy by Dr. Pond at [facility] of underlying BPH. He recently completed this treatment. Hypertension, dyslipidemia, gastroesophageal reflux disease and stroke twice in the year 1999 and 2001. Past Medical History Problem list All Problems Encounter for screening colonoscopy / SNOMED CT 355496531 / Confirmed Headache / SNOMED CT 27954524 / Confirmed Nasal congestion / SNOMED CT 296610875 / Confirmed Obesity / SNOMED CT 7816827686 / Confirmed JULIA (obstructive sleep apnea) / SNOMED CT 693976793 / Possible Secondary polycythemia / SNOMED CT 973886687 / Confirmed Allergies Allergic Reactions (Selected) Severity Not Documented Ibuprofen- Rash and swelling of throat. Current medications (Selected) Prescriptions Prescribed ipratropium nasal 21 mcg/inh spray: See Instructions, PRN Nasal Congestion, 1 spray each nostril BID, # 1 each, 4 Refills, Maintenance, 01/26/15 10:02:56, 1 spray each nostril BID,PRN:Nasal Congestion Documented Medications Documented Amlodipine: 5 mg, By Mouth, Daily, Maintenance, 07/15/13 14:57:47 Aspirin: = 81 mg, By Mouth, Daily, 0 Refills, Maintenance Clonazepam: = 1 mg, By Mouth, 2 times a day, PRN Anxiety, 0 Refills Flomax 0.4 mg oral capsule: 1 capsule = 0.4 mg, By Mouth, 2 times a day, 0 Refills, Maintenance Mag-Ox Tablet: = 500 mg, By Mouth, 2 times a day, 0 Refills, Maintenance, 11/14/17 15:01:26, Tablet Maxalt 5 mg oral tablet: 1 tablet = 5 mg, By Mouth, Daily, PRN for migraine headache, may repeat dose every 2 hours up to a maximum of 3, # 6 tablet, 0 Refills, Maintenance, Tablet Metoprolol: = 50 mg, By Mouth, 2 times a day, 0 Refills, Maintenance Omeprazole: = 20 mg, By Mouth, Daily, 0 Refills, Maintenance Tylenol 325 mg oral tablet: 650 mg, 2, tablet, By Mouth, 3 times a day, Refills 0, Maintenance, 12/29/15 15:20:37 Vitamin D 10739 iu oral capsule: 50,000 International_Units, 1, capsule, By Mouth, Every week, Refills 0, Maintenance, 11/14/17 15:01:14 hydrochlorothiazide-lisinopril 12.5 mg-20 mg oral tablet: 1 tablet, By Mouth, Daily, # 30 tablet, 0 Refills, Maintenance, Tablet rosuvastatin 10 mg oral tablet: 1 tablet = 10 mg, By Mouth, 2 times a day, 0 Refills, Maintenance, 12/14/16 14:16:28 Surgical History Procedure/Surgical Profile Colonoscopy, flexible, proximal to splenic flexure; diagnostic, with or without collection of specimen(s) by brushing or washing, with or without colon decompression (separate procedure) ([id number]) performed by Delta Landin MD on 02/11/2015 at 54 Years. Colonoscopy ([id number]). Comments: 01/13/2015 13:31 - Michael Yoon 2014 Endoscopy ([id number]). Comments: 01/13/2015 13:32 - Alexandru RATLIFF, [place] [facility] [place] ([id number]). Social History Social History Tobacco Details: Former smoker, Other: quit 28 years ago. . Review of Systems 14 point ROS negative except as noted in the HPI. Physical Examination Vital Signs Vitals : VITALS 02/21/2018 14:30 EDT Height 167.64 cm Weight 98.2 kg Dry Weight 98.2 kg Body Mass Index 34.94 >HHI Body surface area 2.14 BSA Tucker 2.07 Temperature 97.7 DegF Temperature Route Oral Pulse Rate 68 bpm Systolic Blood Pressure 146 mm Hg H Diastolic Blood Pressure 93 mm Hg H Blood pressure sites Arm, right Mean Arterial Pressure 111 mm Hg . PE Gen.: The patient is well appearing. He is not any acute distress. He ambulates with a cane. HEENT: Poor dentition. Cardiovascular S1, S2. No murmurs, rubs or gallops. Respiratory: Lungs are clear to auscultation bilaterally. There are no adventitious sounds. Abdomen: Firm, nondistended, tender LUQ, positive bowel sounds. Extremities: No edema bilaterally. Neurologic: Cranial nerves II-12 are intact. The patient has 3 out of 5 strength in the left upper extremity and 5 out of 5 strength in the right upper extremity. PHQ2: not completed today Coping: appropriate Impression and Plan Mr. Salazar is a 57-year-old male with secondary polycythemia who is being treated with as needed phlebotomy with most recent phlebotomy on January 18, 2018 who presents today for follow-up. His current order is for phlebotomy every 2-3 months based on hemoglobin greater than 15, at which 150 cc of blood are removed. We will check a CBC today as he is concerned his hemoglobin may be elevated greater than 15 because his face is getting more red. We will arrange for phlebotomy earlier than 1 month from now if his hemoglobin is greater than 15 today. I have advised the patient that should he have any concerning symptoms such as facial flushing, worsening headache or new neurologic symptoms that he should give our office a call immediately or proceed to the emergency department. Mr. Salazar will be seen again in follow-up in approximately 5 months. As I will be transitioning out of fellowship, I told the patient that he will be seen with another physician at his next appointment. I wished him well. This case was seen and discussed with Dr. Lizette Wodoard. Report sent to all consultants: Bronwyn Bolden. Addendum by Lizette Herrera MD on March 01, 2018 10:21 EDT (Verified) Attending Attestation: I have seen and evaluated this patient. I have discussed the case and its management with the fellow and agree with the findings and plan as documented in the fellow? s note. Lizette Woodard MD Chest pain cardiac cath 04/16 08 negative, stress MIBI 01/2010 negative Resolved Problems Problem Noted Date Diagnosed Date Resolved Date Class 1 obesity due to exces s calories with serious comorbidity and body mass index (BMI) of 34.0 to 34.9 in adult 04/09/2024 09/12/20242018 novel coronavirus disea se (COVID-19) 07/22/2020 [facility] 08/13/2020 05/26/2021 Encounters Date Type Department Care Team Description 10/17/2024 10:00 AM EST Office Visit [address] [phone] Vicente Connor, PharmD Vasylyshyn, Cynthia Essential hypertension, benign (Primary Dx); History of stroke; Class 2 severe obesity due to excess calories with serious comorbidity and body mass index (BMI) of 35.0 to 35.9 in adult ([facility]); Medication management 09/12/2024 10:20 AM EST Office Visit [address] [address] Vicente Connor, PharmD Vasylyshyn, Cynthia Essential hypertension, benign (Primary Dx); Class 2 severe obesity due to excess calories with serious comorbidity and body mass index (BMI) of 35.0 to 35.9 in adult ([facility]) 09/12/2024 Travel 08/13/2024 11:00 AM EST Office Visit [address] [phone] Bronwyn Albert PA-C Essential hypertension, benign (Primary Dx); Class 1 obesity due to excess calories with serious comorbidity and body mass index (BMI) of 34.0 to 34.9 in adult; Hyperlipemia, mixed; 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, unspecified blood vessel laterality (HCC-CMS); Pre-diabetes; Lumbar disc disease 08/13/2024 Travel from Last 3 Months Immunizations Name Administration Dates Next Due Hep B, Adult/Adol (ENERGIX/RECOMBIVAX) 06/18/2009,05/07/2009,02/12/2009, 0 04,01/22/2004 MMR (MMR II/Priorix) 01/22/2004 Td(adult),2 Lf tetanus toxoid,preservative free 01/22/2004 Social History Tobacco Use Types Packs/Day Years Used Date Smoking Tobacco: Never Smokeless Tobacco: Never Tobacco Cessation:Counseling Given: Not Answered Alcohol Use Standard Drinks/Week Comments No 0 (1 standard drink = 0.6 oz pur e alcohol) Social Connections Answer Date Recorded Connectedness 1 03/06/2024 Financial Resource Strain Answer Date R ecorded Financial Resource Strain 1 2023 Stress Answer Date Recorded Stress 1 03/06/2024 Physical Activity Answer Date Recorded Physical Activity 0 04/17/2019 Food Insecurity Answer Date Recorded Food 1 03/06/2024 Transportation Needs Answer Date Record ed Transportation 1 03/06/2024 Housing Stability Answer Date Recorded Housing [...] Orientation Straight 06/15/2017 7: 21 PM PDT Last Filed Vital Signs Vital Sign Reading Time Taken Comments Blood Pressure 138/88 10/17/2024 10:08 AM EST Pulse 60 10/17/2024 10:08 AM EST Temperature 37.1 ??C (98.7 ??F) 08/13/2024 10:[address] Respiratory Rate 16 10/17/2024 10:08 AM EST Oxygen Saturation 97% 10/17/2024 10:08 AM EST Inhaled Oxygen Concentration - - Weight 98.9 kg (218 lb) 10/17/2024 10:08 AM EST Height 167.6 cm (5' 6 ) 10/17/2024 10:08 AM EST Body Mass Index 35.19 10/17/2024 10:08 AM EST Plan of Treatment Upcoming Encounters Date Type Department Care Team (Late st Contact Info) Description 12/13/2024 1:20 PM EDT Office Visit [facility] [address] [place] [address] Vicente Connor, RadhaD [address] [place] [address] Cynthia Hackett [address] [place] [address] Health Maintenance Due Date Last Done Comments CT Colonography 11/15/2003 Fecal DNA 11/15/2003 Flexible Sigmoidoscopy 11/15/2003 FIT/gFOBT 2015 11/13/2014 (Theresa ged by Outside Provider), 10/30/2013 (Declined) Depression Monitoring 06/06/2024 03/06/2024 , 10/12/2022, 06/08/2022, Additional history exists Medicare Annual Wellness Visit 10/03/2024 10/03/2023, 05/26/2021, 05/08/2019, Additional history exists Imm-Pneumococcal 65+ (1 of 1 - PCV) 11/11/2024 Postponed from 2008 (Patient postponement) Imm-Zoster, Recombinant (1 of 2) 11/11/2024 Postponed from 2008 (Patient postponement) Aji-IEFRU-80 ( - ) 11/12/2024 Postponed from 04/28/2024 (Patient postponement) Colonoscopy 02/11/2025 02/11/2015, 02/11/2015 Colorectal Cancer Screening 02/11/2025 Diabetes Screening 03/06/2025 03/06/2024, 0 03/06/2024, 10/03/2023, Additional history exists Lipid Screening 03/06/2025 03/06/2024, 02/0 01/2024, 10/12/2022, Additional history exists Falls Prevention 05/13/2025 05/13/2024 (Man aged by Outside Provider) Tobacco Screening 10/17/2025 10/17/2024, 05/04/2023 Imm-DTaP/Tdap/Td Discontinued 01/22/2004 Imm-Hepatitis B Completed 06/18/2009, 04/28, 02/12/2009, Additional history exists HIV Screening Completed 07/04/2018 Hepatitis C Screening Completed 07/04/2018 Imm-Influenza Discontinued 05/02/2019, 04/2014 (Declined), 10/30/2013 (Declined) Alcohol and Drug Screen Discontinued 03/06/20, 10/12/2022, 06/08/2022, Additional history exists Procedures Procedure Name Priority Date/Time Associated Diagnosis Comments HEMOGLOBIN GLYCOSYLATED A1C Routine 03/06/2024 11:24 AM EDT Essential hypertension, benign Hyperlipemia, mixed Polycythemia vera (HCC-CMS) Anxiety and depression Class 2 severe obesity due to excess calories with serious comorbidity and body mass index (BMI) of 35.0 to 35.9 in adult (HCC-CMS) Pre-diabetes Urticaria Lumbar disc disease Cervicogenic headache LIPID PANEL Routine 03/06/2024 11:24 AM EDT Essential hypertension, benign Hyperlipemia, mixed Polycythemia vera (HCC-CMS) Anxiety and depression Class 2 severe obesity due to excess calories with serious comorbidity and body mass index (BMI) of 35.0 to 35.9 in adult (HCC-CMS) Pre-diabetes Urticaria Lumbar disc disease Cervicogenic headache ANTIBODY HIV-1&HIV-2 SINGLE RESULT Routine 07/04/2018 11:23 AM EST Essential hypertension, benign HEPATITIS C ANTIBODY Routine 07/04/2018 11:23 AM EST Essential hypertension, benign COLONOSCOPY Routine 02/11/2015 5:50 PM EDT from Last 3 Months or Most Recently Relevant to Health Maintenance Results * (ABNORMAL) HEMOGLOBIN GLYCOSYLATED A1C (03/06/2024 11:24 AM EDT) HEMOGLOBIN A1C 6.1(H) <5.7 % of total Hgb [facility] Comment: For someone without known diabetes, a hemoglobin A1c value between 5.7% and 6.4% is consistent with prediabetes and should be confirmed with a follow-up test. For someone with known diabetes, a value <7% indicates that their diabetes is well controlled. A1c targets should be individualized based on duration of diabetes, age, comorbid conditions, and other considerations. This assay result is consistent with an increased risk of diabetes. Currently, no consensus exists regarding use of hemoglobin A1c for diagnosis of diabetes for children. Blood Blood / Unknown 03/06/2024 1 1:24 AM EDT 03/06/2024 11:24 AM EDT us Bronwyn Albert PA-C LAB - BLOOD DRAW Edited Resu lt - Final [email or web address] [address] [place] [id number], [facility] [address] [place] [phone] * (ABNORMAL) LIPID PANEL (03/06/2024 11:24 AM EDT) [facility] Signature CHOLESTEROL, TOTAL 178 <200 mg/dL [facility] HDL CHOLESTEROL 45 > OR = 40 mg/dL [facility] TRIGLYCERIDES 270(H) <150 mg/dL [facility] Comment: If a non-fasting specimen was collected, consider repeat triglyceride testing on a fasting specimen if clinically indicated. Evin et al. J. of Clin. Lipidol. 2015;9:129-169. LDL-CHOLESTEROL 94 99 mg/dL (calc) [facility] Comment: Reference range: <100 Desirable range <100 mg/dL for primary prevention; ?? <70 mg/dL for patients with CHD or diabetic patients with > or = 2 CHD risk factors. LDL-C is now calculated using the Joshua-Rena calculation, which is a validated novel method providing better accuracy than the Friedewald equation in the estimation of LDL-C. Joshua ESTRELLA et al. GIOVANNI. 2013;310(19): 0270-2459 (http://education.Swrve.Gridcentric/faq/VUZ617) CHOL/HDLC RATIO 4.0 <5.0 (calc) [facility] NON-HDL CHOLESTEROL 133(H) <130 mg/dL (calc) [facility] [facility] Comment: For patients with diabetes plus 1 major ASCVD risk factor, treating to a non-HDL-C goal of <100 mg/dL (LDL-C of <70 mg/dL) is considered a therapeutic option. Blood Blood / Unknown 03/06/2024 1 1:24 AM EDT 03/06/2024 11:24 AM EDT Bronwyn Albert PA-C LAB - BLOOD DRAW Final Resul t Performing Organization Address [facility] Co de Phone Number [employer] [address] [address], [employer] [address] [address] * HEPATITIS C ANTIBODY (07/04/2018 11:23 AM EST) HEPATITIS C VIRUS SCREEN NEGATIVE NEGATIVE [facility] Blood specimen (specimen) Blood / Unknown 07/04/2018 11:23 AM EST 07/04/2018 2:06 PM EST Narrative [facility] - 07/04/2018 3:35 PM EST [email or web address] [address] [place] [address] [place] [id number] ORD# [id number] Bronwyn Albert PA-C LAB - BLOOD DRAW Edited Resu lt - Final Performing Organization Address [facility] de Phone Number [address] [address], * HIV-1 & HIV-2 ANTIBODIES (07/04/2018 11:23 AM EST) HIV 1 AND 2 ANTIBODY SCREEN NEGATIVE NEGATIVE [facility] Comment: This assay is a 4th generation assay allowing for earlier detection of HIV infection by detecting the presence of the HIV-1 p24 antigen as well as the traditional antibodies to HIV type 1 (including group O) and type 2. ??Use of a 4th generation assay is the current CDC recommendation for HIV screening. Blood specimen (specimen) Blood / Unknown 07/04/2018 11:23 AM EST 07/04/2018 2:06 PM EST Narrative [facility] 07/04/2018 3:37 PM EST [employer] [address] [place] [address] [place] [id number] ORD# [id number] Bronwyn Albert PA-C LAB - BLOOD DRAW Edited Resu lt - Final [facility] [address] [place] [address], [place] [phone] * COLONOSCOPY (02/11/2015 5:50 PM EDT) Impressions Bronwyn Albert PA-C - 02/11/2015 5:50 PM EDT 02/11/2015 by Delta Landin MD. ??There were no polyps or colon problems. ??Repeat colonoscopy recommended in 10 years. Provider Ochin PROCEDURES Final Result from Last 3 Months or Most Recently Relevant to Health Maintenance Insurance [place] Care Teams Hospital Account Liaison Relationship Specialty Start Date End Date Bronwyn Albert PA-C [address] [place] [address] PCP - General Internal Medicine 10/30/13
== END 2024-10-25 08:56 | disposition home or self-care (01) ==
LOC: HO.BBR 08:55
PROVIDERS: Visit Provider Internal Medicine Hematology
DX: D75.1 Secondary polycythemia (principal)
CPT/HCPCS: 85014; 85018; 99195

== ENCOUNTER 2024-12-23 12:48 | Outpatient (REF) | payer MEDICARE, MEDICAID, SELFPAY ==
--- OUTSIDE RECORDS SUMMARY | 2024-12-23 15:10 | XMS_ITS | Encounter Summary ---
Author Organization [facility] Address [address] [place] [address] Care Team Providers Care Parachute Supervisor Name Role Phone Bronwyn Albert PA-C Primary Care Provider [phone] Reason for Visit * Reason Comments Correspondence [facility] Encounter Details Date Type Department Care Team ([facility] Contact Info) Description 01/26/2016 Interim Notes [address] [phone] Ping Amaro [address] [place] [id number] Social History Tobacco Use Types Packs/Day Years [...] Department Care Team (Late Contact Info) Description 01/01/2025 11:20 AM EDT Office Visit [address] [phone] Bronwyn Albert PA-C [address] [place] [phone] 01/24/2025 11:00 AM EDT Office Visit [address] [phone] Vicente Connor, PharmD [address] [place] [address] documented as of this encounter Visit Diagnoses Not on filedocumented in this encounter Additional Health Concerns Infection Onset Date Last Indicated Resolved Time COVID-19 Comment:Added automatically based on visit diagnosis/problem list. 08/13/2020 08/13/2020 11/11/2020 7:10 PM PDT documented as of this encounter Care Teams Parachute Supervisor Relationship Specialty Start Date End Date Bronwyn Albert PA-C [address] [place] [phone] PCP - General Internal Medicine 10/30/13 documented as of this encounter
--- OUTSIDE RECORDS SUMMARY | 2024-12-23 15:10 | XMS_ITS | Clinical Summary ---
Author Organization [facility] ity Address [address] [place] [phone] Care Team Providers Care Palliative Medicine Physician Name Role Phone Bronwyn Albert Primary Care Provider [phone] Family History Medical History Relation Name Comments [...] - 2023-2 5 season) 2024 Influenza Vaccine (Season Ended) 2025 RSV Immunization Adult Patie nts (1 - 1-dose 75+ series) 2033 HIB [...] age to complete this topic Meningococcal B Vaccine Aged Out No l onger eligible based on patient's age to complete this topic RSV Immunization Patients Un julisa 20 months Aged Out No longer eligible b ased on patient's age to complete this topic Varicella Vaccines Aged Out No longer eligible based on patient's age to complete this topic Care Teams Palliative Medicine Physician Relationship Specialty Start Date End Date Bronwyn Albert PA [address] [place] [address] PCP - General Internal Medicine 01/19/10
--- OUTSIDE RECORDS SUMMARY | 2024-12-23 15:10 | XMS_ITS | Clinical Summary ---
Author Organization [facility] Address [address] [place] [address] Care Team Providers Care Commercial Account Executive Name Role Phone Bronwyn Albert PA-C Primary Care Provider [phone] Source Comments PLEASE NOTE, if this patient [...] 10/03/2023 Lip swelling Dust Other Severe 01/23/2014 Hydrochlorothiazide Hives High 12/13/2024 Ibuprofen SOB High 05/15/2013 Spironolactone Hives High 12/13/2024 Topiramate Rash High 05/15/2013 Medications EPINEPHrine (EPIPEN) 0.3 mg/0.3 mL pen injectorIndicat ions:Angiotensi n converting enzyme inhibitor-aggra vated angioedema, initial encounter Inject 0.3 mL into the muscle as needed for anaphylaxis 2 Each 3 06/07/20 23 Active aspirin-acetami nophen-caffeine (EXCEDRIN MIGRAINE) 250-250-65 mg per tabletIndicatio ns:Mixed headache Take 1 Tablet by mouth 3 (three) times daily No allergy to aspirin 90 Tablet 4 10/03/19 24 Active rosuvastatin (CRESTOR) 10 mg tabletIndicatio ns:Pre-diabetes TAKE 1 TABLET BY MOUTH EVERY NIGHT AT BEDTIME 90 Tablet 3 02/27/20 24 Active cyanocobalamin (VITAMIN B-12) 1,000 mcg/mL injectionIndica tions:Low serum vitamin B12 INJECT 1 ML INTO THE SKIN EVERY 3 MONTHS 10 mL 05/07/20 24 Active rizatriptan (MAXALT) 5 mg tabletIndicatio ns:Mixed headache TAKE 1 TABLET BY MOUTH 1 TIME FOR UP TO 1 DOSE NEEDED FOR MIGRAINE 9 Tablet 05/07/20 24 Active BD LUER-BENY SYRINGE 3 mL 25 gauge x 1 Indications:L ow serum vitamin B12 USE EVERY MONTH FOR B12 INJECTION 1 Each 05/10/20 24 Active lidocaine (LIDODERM) 5 % patch Apply 1 patch to the affected area for a maximum of 12 hours, followed by removal for 12 hours. 30 Patch 4 05/13/20 24 Active diclofenac sodium (VOLTAREN) 1 % gel Apply 2 g topically 2 (two) times daily 100 g 05/13/20 24 Active ciclopirox (PENLAC) 8 % solution 06/19/20 24 Active betamethasone valerate (VALISONE) 0.1 % creamIndication s:Dyshidrotic eczema APPLY THIN LAYER TOPICALLY TO THE AFFECTED AREA TWICE DAILY 90 g 3 08/13/20 24 Active magnesium oxide (MAG-OX) 400 mg (241.3 mg magnesium) tablet Take 1 Tablet by mouth once daily 07/08/20 24 Active GAVILYTE-G 236-22.74-6.74 -5.86 gram solution 09/03/19 25 Active vitamin B complex capsule Take 1 Capsule by mouth once daily 07/09/20 24 Active hydroCHLOROthia zide (HYDRODIURIL) 25 mg tabletIndicatio ns:Essential hypertension, benign Take 1 Tablet by mouth every morning stop valsartan-HCTZ combination 90 Tablet 1 09/12/19 25 Active spironolactone (ALDACTONE) 25 mg tabletIndicatio ns:Essential hypertension, benign Take 1 Tablet by mouth every morning For blood pressure. 90 Tablet 1 09/12/19 25 Active clonazePAM (KLONOPIN) 1 mg tabletIndicatio ns:Anxiety and depression TAKE 1 TABLET BY MOUTH TWICE DAILY 60 Tablet 2 09/17/19 25 Active valsartan (DIOVAN) 160 mg tabletIndicatio ns:Essential hypertension, benign Take 1 Tablet by mouth 2 (two) times daily For blood pressure. 180 Tablet 1 12/14/19 25 Active lidocaine (XYLOCAINE) 5 % oint APPLY TOPICALLY TO THE AFFECTED AREA THREE TIMES DAILY 35.44 g 1 12/21/19 25 Active loratadine (CLARITIN) 10 mg tabletIndicatio ns:Urticaria TAKE 1 TABLET BY MOUTH AT BEDTIME 90 Tablet 1 12/22/19 [address] aspirin [address] tabletIndicatio ns:Essential hypertension TAKE 1 TABLET BY MOUTH EVERY DAY 90 Tablet 3 12/22/19 25 Active omeprazole (PRILOSEC) [address] capsuleIndicati ons:Dyspepsia TAKE 1 CAPSULE BY MOUTH TWICE DAILY. DO NOT CRUSH OR CHEW 180 Capsule 2 12/24/19 [address] aspirin [address] tabletIndicatio ns:Essential hypertension Take 1 Tablet by mouth once daily 90 Tablet 3 06/07/20 23 2024 Discontinued loratadine (CLARITIN) 10 mg tabletIndicatio ns:Urticaria Take 1 Tablet by mouth nightly at bedtime 90 Tablet 1 03/06/20 24 2024 Discontinued omeprazole (PRILOSEC) [address] capsuleIndicati ons:Dyspepsia TAKE 1 CAPSULE BY MOUTH TWICE DAILY. DO NOT CRUSH OR CHEW 180 Capsule 2 05/10/20 24 2024 Discontinued lidocaine (XYLOCAINE) 5 % oint APPLY TOPICALLY TO THE AFFECTED AREA THREE TIMES DAILY 08/13/20 24 2024 Discontinued valsartan (DIOVAN) 320 mg tabletIndicatio ns:Essential hypertension, benign Take 1 Tablet by mouth every evening stop valsartan-HCTZ combination 90 Tablet 1 09/12/19 25 2024 Discontinued(Q uantity/Dosage and/or Sig change) Active Problems Problem Noted Date Diagnosed Date [...] on 09 February 2015 11:16 Encounter info: [id number], [facility], 02/07/2015 - 02/14/2015 * Final Report * Reason For Exam ? RCT PAIN/INSTABILITY;? RCT PAIN/INSTABILITY RESULT: MRI Joint Ext Upper W/O Contrast Right [facility] VISIT NUMBER :[id number] Patient Name : Abby Salazar Date of : 1960 Date of Exam : 02/07/2015 Referring Physician : JOSHUA ORDONEZ [address], Attn: [place] [address] Exam : MR - SHOULDER (C-) CPT 14487 - RIGHT Room Description : [facility] 2 1.5 Technique : Ax PD Fsat, [...] Signed Date/Time: 02/09/15 11:16 am Transcribed By: LUZ MARINA Transcribed Date/Time: 02/09/15 11:16 am MRI Joint Ext Upper W/O Contrast Right This document has an image Result type: Shoulder Min 2 Views Right Result date: 24 December 2014 11:06 Result status: Auth (Verified) Result title: Shoulder Min 2 Views Right Performed by: Amalia Walters MD on 24 December 2014 11:14 Verified by: Amalia Walters MD on 24 December 2014 11:14 Encounter info: [id number], [facility], One Time OP, 12/24/2014 - 12/24/2014 * [...] on 11 March 2014 11:18 Encounter info: [id number], [facility], [facility] Time OP, 02/23/2014 - 02/23/2014 Contributor system: [employer] * Final Report * Polysomnogram (Verified) POLYSOMNOGRAM DATE:02/23/2014 [facility] SLEEP PROGRAM [facility] Accredited by the [place] [employer] Referring Provider: Morgan Holley M.D. Date of Study: 02/23/2014 Order ID: [id number] INTRODUCTION: This 53 year-old male is referred with polycythemia. The sleep questionnaire noted snoring, witnessed apneas, gasping arousals, unrefreshing sleep, nasal congestion, dry mouth, feeling paralyzed on awakening, and difficulty initiating and maintaining sleep. [place] sleepiness scale is 7. The height is 66 inches. The weight is 220.0 lbs. The BMI is 35.8. MEDICATIONS: Amlodipine, Metoprolol, Atorvastatin, Fluticasone, Amoxicillin, Gabapentin, Lisinopril-Hydrochlorothiazide, Aspirin, Nitrostat, Tamsulosin , Indomethacin, Omeprazole, Rizatriptan, Klonopin. DESCRIPTION: This overnight polysomnogram was done utilizing a [employer] digital polysomnograph machine. Four channels of EEG [...] Transcribed: 03/10/2014 20:14:02 Transcribed by: MARILYN DocID: [id number] PRELIMINARY REPORT UNLESS MANUALLY/ELECTRONICALLY SIGNED CC:Morgan Hollye M.D. Resident - Hem/Onc PGY4 [address] [place], [address] Bronwyn Albert [facility] [address] [place], [address] Aureliano Castaneda M.D. [facility] - Hem/Onc [address] [place], [address] BPH (benign prostatic hyperplasia) s/p TURP 12/27 Mild vitamin D deficiency 05/15/2013 Essential hypertension, benign Overview (11/10/2017): Result type: VL Renal Artery Doppler Result date: October 30, 2017 10:00 Result status: Modified Result title: VL Duplex Renal Artery Performed by: Ryan Mendes MD on October 30, 2017 10:00 Verified by: Ryan Mendes MD on October 30, 2017 10:00 Encounter info: [id number], [facility], One Time OP, 10/30/2017 - 10/30/2017 Contributor system: [employer] * Final Report * VL Duplex Renal Artery Renal and Arterial Duplex Complete Renal Demographics Patient Name MARIE MORA Date of Study 10/30/2017 Corporate Gender Male Facility Race Unknown Ethnicity Date of 1960 Height Age 56 Weight Accession Number [id number] BSA Room Number BMI Referring Physician Bebe RATLIFF Interpreting Ryan Mendes MD Physician Assembly Person Elida Milian RVT Indications Type of Study: Abdominal: Renal, Arterial Duplex Complete Renal. Indications for Study:Renal hypertension. Patient Status:Routine. Study Location:[facility]. Technical Quality:Good visualization. Probe:C5-1 MHZ. [...] This document has an image Cerebral infarction ([facility]) S/P colonoscopy/EGD 2003 (neg) Hemorrhoids, external Hyperlipemia, mixed Class 2 severe obesity due t o excess calories with serious comorbidity and body mass index (BMI) of 35.0 to 35.9 in adult ([facility]) Mixed headache Anxiety and depression Dyspepsia Polycythemia vera ([facility]) Overview (04/04/2018): Result type: Hematology/Oncology Note Office Result date: February 21, 2018 14:16 EDT Result status: Modified Result title: F/U: Secondary Erythrocytosis Performed by: Harman PEREZ, MPH, Gail on February 21, 2018 14:33 EDT Verified by: Harman PEREZ, MPH, Gail on February 21, 2018 15:00 EDT Encounter info: [id number], [facility], Recurring OP, 02/20/2018 - Document Contains Addenda F/U: Secondary Erythrocytosis Patient: ABBY SALAZAR Age: 57 years Sex: Male : 1960 Associated Diagnoses: None Author: Harman PEREZ, MPH, Gail Visit Information Date of service: February 21, [...] for follow-up. He is accompanied by the Kazakh conference interpreter. He is feeling well but thinks that [...] by hormonal therapy by Dr. Pond at [facility] of underlying BPH. He recently completed this treatment. Hypertension, dyslipidemia, gastroesophageal reflux disease and stroke twice in the year 1999 and 2001. Past Medical History Problem list All Problems Encounter for screening colonoscopy / SNOMED CT 950928719 / Confirmed Headache / SNOMED CT 63777854 / Confirmed Nasal congestion / SNOMED CT 113061252 / Confirmed Obesity / SNOMED CT 9063273581 / Confirmed JULIA (obstructive sleep apnea) / SNOMED CT 102270201 / Possible Secondary polycythemia / SNOMED CT 721968129 / Confirmed Allergies Allergic Reactions (Selected) Severity [...] Refills 0, Maintenance, 12/29/15 15:20:37 Vitamin D 39281 iu oral capsule: 50,000 International_Units, 1, capsule, [...] with or without colon decompression (separate procedure) (61536) performed by Delta Landin MD on 02/11/2015 at 54 Years. Colonoscopy ([id number]). Comments: 01/13/2015 13:31 - Michael Yoon 2014 Endoscopy ([id number]). Comments: 01/13/2015 13:32 - Michael Yoon with colonoscopy in 2003 at [facility] Hemorrhoidectomy ([id number]). Social History Social History Tobacco Details: Former smoker, Other: quit 28 years ago. . Review of Systems 14 point ROS negative except as noted in the HPI. Physical Examination Vital Signs Vitals : VITALS 02/21/2018 14:30 EDT Height 167.64 cm Weight 98.2 kg Dry Weight 98.2 kg Body Mass Index 34.94 >HHI Body surface area 2.14 BSA [place] 2.07 Temperature 97.7 DegF Temperature Route Oral [...] was seen and discussed with Dr. Lizette Woodard. Report sent to all consultants: Bronwyn Bolden. [...] Encounters Date Type Department Care Team Description 12/13/2024 1:20 PM EDT Office Visit [address] [phone] Vicente Connor, Pharm[address]ynthia [address] Essential hypertension, benign (Primary Dx); History of stroke; Class 2 severe obesity due to excess calories with serious comorbidity and body mass index (BMI) of 35.0 to 35.9 in adult ([facility]); Medication management 10/17/2024 10:00 AM EST Office Visit [address] [phone] Vicente Connor, PharmCynthia [address] Essential hypertension, benign (Primary Dx); History of stroke; Class 2 severe obesity due to excess calories with serious comorbidity and body mass index (BMI) of 35.0 to 35.9 in adult ([facility]); Medication management from Last 3 Months Immunizations Immunization Administration Dates Next Due Hep B, Adult/Adol (ENERGIX/RECOMBIVAX) 06/18/2009,05/07/2009,02/12/2009,2003,01/22/2004 MMR (MMR II/Priorix) 01/22/2004 Td(adult),2 Lf tetanus [...] Sign Reading Time Taken Comments Blood Pressure 120/70 12/13/2024 1:41 PM EDT Pulse 70 12/13/2024 1:41 PM EDT Temperature 37 ??C (98.6 ??F) 12/13/2024 1:41 PM EDT Respiratory Rate 12 12/13/2024 1:41 PM EDT Oxygen Saturation 100% 12/13/2024 1:41 PM EDT Inhaled Oxygen Concentration - - Weight 98.6 kg (217 lb 4.8 oz) 12/13/2024 1:41 PM EDT Height 167.6 cm (5' 6 ) 12/13/2024 1:41 PM EDT Body Mass Index 35.07 12/13/2024 1:41 PM EDT Plan of Treatment Upcoming Encounters Date Type Department Care Team (Late st Contact Info) Description 01/01/2025 11:20 AM EDT Office Visit [address] [phone] Bronwyn Albert PA-C [address] [place] [phone] 01/24/2025 11:00 AM EDT Office Visit [address] [phone] Vicente Connor, PharmD [address] [place] [phone] Health Maintenance Due Date Last Done Comments CT Colonography 11/15/2003 Fecal DNA 11/15/2003 Flexible Sigmoidoscopy 11/15/2003 Imm-Pneumococcal 65+ (1 of 1 - PCV) 2008 Imm-Zoster, Recombinant (1 of 2) 2008 FIT/gFOBT 2015 11/13/2014 (Theresa ged by Outside Provider), 10/30/2013 (Declined) [id number] ( season) 2024 Depression Monitoring 06/06/2024 03/06/2024 , 10/12/2022, 06/08/2022, Additional history exists Medicare Annual Wellness Visit 10/03/2024 0 10/03/2023, 05/26/2021, 05/08/2019, Additional history exists Colonoscopy 02/11/2025 02/11/2015, 02/11/2015 Colorectal Cancer Screening 02/11/2025 Diabetes Screening 03/06/2025 03/06/2024, 0 03/06/2024, 10/03/2023, Additional history exists Lipid Screening 03/06/2025 03/06/2024, 01/2024, 10/12/2022, Additional history exists Falls Prevention 05/13/2025 05/13/2024 (Man aged by Outside Provider) Tobacco Screening 12/13/2025 12/13/2024, 05/04/2023 Imm-DTaP/Tdap/Td Discontinued 01/22/2004 Imm-Hepatitis B Completed 06/18/2009, 04/28, 02/12/2009, Additional history exists Hepatitis C Screening Completed 07/04/2018 Imm-Influenza Discontinued 05/02/2019, 04/2014 (Declined), 10/30/2013 (Declined) Alcohol and Drug Screen Discontinued 03/06/20, 10/12/2022, 06/08/2022, Additional history exists Procedures Procedure Name Priority Date/Time Associated Diagnosis Comments REFERRAL SCANNED DOCUMENT 11/20/2024 3:00 AM EDT HEMOGLOBIN GLYCOSYLATED A1C Routine 03/06/2024 11:24 AM EDT Essential hypertension, benign Hyperlipemia, mixed Polycythemia vera ([facility]) Anxiety and depression Class 2 severe obesity due to excess calories with serious comorbidity and body mass index (BMI) of 35.0 to 35.9 in adult ([facility]) Pre-diabetes Urticaria Lumbar disc disease Cervicogenic headache LIPID PANEL Routine 03/06/2024 11:24 AM EDT Essential hypertension, benign Hyperlipemia, mixed Polycythemia vera ([facility]) Anxiety and depression Class 2 severe obesity due to excess calories with serious comorbidity and body mass index (BMI) of 35.0 to 35.9 in adult ([facility]) Pre-diabetes Urticaria Lumbar disc disease Cervicogenic headache HEPATITIS C ANTIBODY Routine 07/04/2018 11:23 AM EST Essential hypertension, benign COLONOSCOPY Routine 02/11/2015 5:50 PM EDT from Last 3 Months or Most Recently Relevant to Health Maintenance Results * REFERRAL SCANNED DOCUMENT (11/20/2024 3:00 AM EDT) 11/20/2024 3:00 AM EDT us Bronwyn Albert PA-C SCAN REFERRAL Final Result * (ABNORMAL) HEMOGLOBIN GLYCOSYLATED A1C (03/06/2024 11:24 AM EDT) HEMOGLOBIN A1C 6.1(H) <5.7 % of total Hgb [facility] Comment: For someone without known diabetes, a [...] BLOOD DRAW Edited Resu lt - Final [employer] [address] [address], [facility] [address] [place] [address] * (ABNORMAL) LIPID PANEL (03/06/2024 11:24 AM EDT) CHOLESTEROL, TOTAL 178 <200 mg/dL [facility] HDL CHOLESTEROL 45 > OR = 40 mg/dL [facility] TRIGLYCERIDES 270(H) <150 mg/dL [facility] Comment: If a non-fasting specimen was collected, consider repeat triglyceride testing on a fasting specimen if clinically indicated. Evin et al. J. of Clin. Lipidol. 2015;9:129-169. LDL-CHOLESTEROL 94 99 mg/dL (calc) [facility] Comment: Reference range: <100 Desirable range <100 mg/dL for primary prevention; ?? <70 mg/dL for patients with CHD or diabetic patients with > or = 2 CHD risk factors. LDL-C is now calculated using the Radha calculation, which is a validated novel method providing better accuracy than the Friedewald equation in the estimation of LDL-C. Joshua SS et al. GIOVANNI. 2013;310(19): 9460-0025 (http://education.Rouxbe/faq/GDN689) CHOL/HDLC RATIO 4.0 <5.0 (calc) [facility] NON-HDL CHOLESTEROL 133(H) <130 mg/dL (calc) [facility] Comment: For patients with diabetes plus 1 major ASCVD risk factor, treating to a non-HDL-C goal of <100 mg/dL (LDL-C of <70 mg/dL) is considered a therapeutic option. Blood Blood / Unknown 03/06/2024 1 1:24 AM EDT 03/06/2024 11:24 AM EDT Bronwyn Albert PA-C LAB - BLOOD DRAW Final Resul t [employer] [facility] [address] [place] [id number], [facility] [address] [place] [phone] * HEPATITIS C ANTIBODY (07/04/2018 11:23 AM EST) HEPATITIS C VIRUS SCREEN NEGATIVE NEGATIVE [facility] Blood specimen (specimen) Blood / Unknown 07/04/2018 11:23 AM EST 07/04/2018 2:06 PM EST Narrative [facility] - 07/04/2018 3:35 PM EST [facility] [address] [place] [address] [place] [id number] ORD# [id number] Bronwyn Albert PA-C LAB - BLOOD DRAW Edited Resu lt - Final [facility] [address] [place] [address], * COLONOSCOPY (02/11/2015 5:50 PM EDT) Impressions Bronwyn Albert PA-C - 02/11/2015 5:50 PM EDT 02/11/2015 by Delta Landin MD. ??There were no polyps or colon problems. ??Repeat colonoscopy recommended in 10 years. us Provider [facility] PROCEDURES Final Result from Last 3 Months or Most Recently Relevant to Health Maintenance Insurance [place] Care Teams Commercial Account Executive Relationship Specialty Start Date End Date Bronwyn Albert PA-C [address] [place] [address] PCP - General Internal Medicine 10/30/13
== END 2024-12-23 12:49 | disposition home or self-care (01) ==
LOC: HO.BBR 12:48
PROVIDERS: Visit Provider Internal Medicine Hematology
DX: D75.1 Secondary polycythemia (principal)
CPT/HCPCS: 85014; 85018; 99195

== ENCOUNTER 2025-02-21 12:40 | Outpatient (REF) | payer MEDICARE, MEDICAID, SELFPAY ==
--- OUTSIDE RECORDS SUMMARY | 2025-02-21 13:16 | XMS_ITS | Clinical Summary ---
Author Organization [facility] Address [address] [place] [phone] Care Team Providers Care Agriculture Department Chair Name Role Phone Bronwyn Albert Primary Care Provider [phone] Family History Medical History Relation Name Comments [...] age to complete this topic Care Teams Agriculture Department Chair Relationship Specialty Start Date End Date Bronwyn Albert PA [address] [place] [phone] PCP - General Internal Medicine 01/19/10
== END 2025-02-21 12:41 | disposition home or self-care (01) ==
LOC: HO.BBR 12:40
PROVIDERS: Visit Provider Internal Medicine Hematology
DX: D75.1 Secondary polycythemia (principal)
CPT/HCPCS: 85014; 85018; 99195

== ENCOUNTER 2025-04-23 12:48 | Outpatient (REF) | payer MEDICARE, MEDICAID, SELFPAY ==
--- OUTSIDE RECORDS SUMMARY | 2025-04-23 13:11 | XMS_ITS | Clinical Summary ---
Author Organization [facility] Address [address] [place] [phone] Care Team Providers Care Cold Press Operator Name Role Phone Bronwyn Albert Primary Care Provider [phone] Family History Medical History Relation Name Comments [...] Vaccine ( - 2023-2 5 season) 2024 Depression Screening 08/28/2024 Influenza Vaccine (#1) 2025 RSV Immunization Adult Patie nts (1 [...] age to complete this topic Care Teams Cold Press Operator Relationship Specialty Start Date End Date Bronwyn Albert PA [address] [place] [phone] PCP - General Internal Medicine 01/19/10
--- OUTSIDE RECORDS SUMMARY | 2025-04-23 13:12 | XMS_ITS | Encounter Summary ---
Author Organization [facility] Address [address] [place] [address] Care Team Providers Care Mortgage Counselor Name Role Phone Bronwyn Albert PA-C Primary Care Provider [phone] Reason for Visit * Reason Comments Correspondence [facility] Encounter Details Date Type Department Care Team ([facility] Contact Info) Description 01/26/2016 Interim Notes [id number] [place] [phone] [phone] [place] [address] Social History Tobacco Use Types Packs/Day Years [...] as of this encounter Plan of Treatment Not on file documented as of this encounter Visit Diagnoses Not on filedocumented in this encounter Additional Health Concerns Infection Onset Date Last Indicated Resolved Time COVID-19 Comment:Added automatically based on visit diagnosis/problem list. 08/13/2020 08/13/2020 11/11/2020 7:10 PM PDT documented as of this encounter Care Teams Mortgage Counselor Relationship Specialty Start Date End Date Bronwyn Albert PA-C [facility] [place] [phone] PCP - General Internal Medicine 10/30/13 documented as of this encounter
== END 2025-04-23 12:49 | disposition home or self-care (01) ==
LOC: HO.BBR 12:48
PROVIDERS: Visit Provider Internal Medicine Hematology
DX: D75.1 Secondary polycythemia (principal)
CPT/HCPCS: 85018

== ENCOUNTER 2025-06-23 12:32 | Outpatient (REF) | payer MEDICARE, SELFPAY ==
--- OUTSIDE RECORDS SUMMARY | 2025-06-23 15:51 | XMS_ITS | Clinical Summary ---
Author Organization [facility] Address [address] [place] [address] Care Team Providers Care Medical Editor Name Role Phone Bety Bronwyn NIETO Primary Care Provider [phone] Source Comments PLEASE NOTE, if this patient [...] Other Severe 01/23/2014 Hydrochlorothiazide Hives High 12/13/2024 Rash Ibuprofen SOB High 05/15/2013 Topiramate Rash High 05/15/2013 Medications cyanocobalamin (VITAMIN B-12) 1,000 mcg/mL injectionIndicat ions:Low serum vitamin B12 INJECT 1 ML INTO THE SKIN EVERY 3 MONTHS 10 mL 4 Active rizatriptan (MAXALT) 5 mg tabletIndication s:Mixed headache TAKE 1 TABLET BY MOUTH 1 TIME FOR UP TO 1 DOSE NEEDED FOR MIGRAINE 9 Tablet 4 Active BD LUER-BENY SYRINGE 3 mL 25 gauge x 1 Indications:Lo w serum vitamin B12 USE EVERY MONTH FOR B12 INJECTION 1 Each 4 Active lidocaine (LIDODERM) 5 % patch Apply 1 patch to the affected area for a maximum of 12 hours, followed by removal for 12 hours. 30 Patch 4 4 Active diclofenac sodium (VOLTAREN) 1 % gel Apply 2 g topically 2 (two) times daily 100 g 11 4 Active betamethasone valerate (VALISONE) 0.1 % creamIndications :Dyshidrotic eczema APPLY THIN LAYER TOPICALLY TO THE AFFECTED AREA TWICE DAILY 90 g 3 4 Active magnesium oxide (MAG-OX) 400 mg (241.3 mg magnesium) tablet Take 1 Tablet by mouth once daily 4 Active vitamin B complex capsule Take 1 Capsule by mouth once daily 4 Active valsartan (DIOVAN) 160 mg tabletIndication s:Essential hypertension, benign Take 1 Tablet by mouth 2 (two) times daily For blood pressure. 180 Tablet 1 5 Active loratadine (CLARITIN) 10 mg tabletIndication s:Urticaria TAKE 1 TABLET BY MOUTH AT BEDTIME 90 Tablet 1 [address] Active [address] tabletIndication s:Essential hypertension TAKE 1 TABLET BY MOUTH EVERY DAY 90 Tablet 3 5 Active omeprazole (PRILOSEC) [address] capsuleIndicatio ns:Dyspepsia TAKE 1 CAPSULE BY MOUTH TWICE DAILY. DO NOT CRUSH OR CHEW 180 Capsule 2 5 Active clonazePAM (KLONOPIN) 1 mg tabletIndication s:Anxiety and depression TAKE 1 TABLET BY MOUTH TWICE DAILY 60 Tablet 3 5 Active EPINEPHrine (EPIPEN) 0.3 mg/0.3 mL pen injectorIndicati ons:Seasonal allergies Inject 0.3 mL into the muscle as needed for anaphylaxis 2 Each 6 5 Active cholecalciferol (VITAMIN D-3) 50 mcg (2,000 unit) tablet Take 1 Tablet by mouth once daily 90 Tablet 3 5 Active MIGRAINE RELIEF 250-250-65 mg per tabletIndication s:Mixed headache TAKE 1 TABLET BY MOUTH THREE TIMES DAILY,(NO ALLERGY TO ASPIRIN) 90 Tablet 4 5 Active spironolactone (ALDACTONE) 50 mg tablet Take 1 Tablet by mouth every morning For blood pressure. stop 25 mg. 90 Tablet 1 5 Active rosuvastatin (CRESTOR) 10 mg tabletIndication s:Pre-diabetes TAKE 1 TABLET BY MOUTH EVERY NIGHT AT BEDTIME 90 Tablet 3 5 Active lidocaine (XYLOCAINE) 5 % oint APPLY TOPICALLY TO THE AFFECTED AREA THREE TIMES DAILY 35.44 g 1 5 Active Active Problems Problem Noted Date Diagnosed Date Obstructive sleep apnea syndrome, moderate 03/07 Overview (03/07/2025): Was given CPAP with mask, but the mask was not good for me . Reports trial of nasal tubing, but they said it was not good for me . Not currently using CPAP. 10/12/22 [facility] Sleep Study Patient should be started on AutoCPAP 8-20 cm H2O with compliance data followed. Patient should sleep in non-supine position. A positional device could be ordered Patient should avoid alcohol and sedative containing medications which may worsen sleep apnea Weight loss is recommended since significant weight loss of at least 10% of total body weight can lead to improvement of obstructive sleep apnea If nasal congestion is contributing to the sleep apnea or impeding treatment with CPAP, consider ipratropium nasal 0.03% one spray each nostril before bedtime as needed The patient should be counseled to not drive if feeling drowsy Class 1 obesity due to exces s calories with serious comorbidity and body mass index (BMI) of 34.0 to 34.9 in adult 04/09/2024 History of stroke 06/07/2023 Overview (06/07/2023): 2000 [...] on 09 February 2015 11:16 Encounter info: [id number], [facility], 02/07/2015 - 02/14/2015 * Final Report * Reason For Exam ? RCT PAIN/INSTABILITY;? RCT PAIN/INSTABILITY RESULT: MRI Joint Ext Upper W/O Contrast Right [facility] VISIT NUMBER :[id number] Patient Name : Abby Salazar Date of : 1960 Date of Exam : 02/07/2015 Referring Physician : JOSHUA ORDONEZ [address], Attn: [place] [address] Exam : MR - SHOULDER (C-) CPT 72253 - RIGHT Room Description : [facility] 2 1.5 Technique : Ax PD Fsat, [...] on 24 December 2014 11:14 Encounter info: [id number], [facility] [facility], 12/24/2014 - 12/24/2014 * [...] on 11 March 2014 11:18 Encounter info: [id number], [facility], One Time OP, 02/23/2014 - 02/23/2014 Contributor system: NUANCE * Final Report * Polysomnogram (Verified) POLYSOMNOGRAM DATE:02/23/2014 [facility] SLEEP [facility] Accredited by the [place] [employer] Referring Provider: Morgan Holley M.D. Date of Study: 02/23/2014 Order ID: [id number] INTRODUCTION: This 53 year-old male is referred with polycythemia. The sleep questionnaire noted snoring, witnessed apneas, gasping arousals, unrefreshing sleep, nasal congestion, dry mouth, feeling paralyzed on awakening, and difficulty initiating and maintaining sleep. Conifer sleepiness scale is 7. The height is 66 inches. The weight is 220.0 lbs. The BMI is 35.8. MEDICATIONS: Amlodipine, Metoprolol, Atorvastatin, Fluticasone, Amoxicillin, Gabapentin, Lisinopril-Hydrochlorothiazide, Aspirin, Nitrostat, Tamsulosin , Indomethacin, Omeprazole, Rizatriptan, Klonopin. DESCRIPTION: This overnight polysomnogram was done utilizing a [employer] digital polysomnograph machine. Four channels of EEG [...] PLM arousal index of 0.0 per hour. PATIENT S ASSESSMENT OF NIGHT: I slept ok [...] Transcribed: 03/10/2014 20:14:02 Transcribed by: MARILYN DocID: [id number] PRELIMINARY REPORT UNLESS MANUALLY/ELECTRONICALLY SIGNED CC:Morgan Holley M.D. Resident - Hem/Onc PGY4 [address] [place], [address] Bronwyn Albert [facility] [address] [place], [address] Aureliano Castaneda M.D. [facility] - Hem/Onc [address] [place], [address] BPH (benign prostatic hyperplasia) s/p TURP 12/27 Mild vitamin D deficiency 05/15/2013 Essential hypertension, benign Overview (11/10/2017): Result type: VL Renal Artery Doppler Result date: October 30, 2017 10:00 Result status: Modified Result title: VL Duplex Renal Artery Performed by: Ryan Mendes MD on October 30, 2017 10:00 Verified by: Ryan Mendes MD on October 30, 2017 10:00 Encounter info: [id number], [facility], One Time OP, 10/30/2017 - 10/30/2017 Contributor system: [employer] * Final Report * VL Duplex Renal Artery Renal and Arterial Duplex Complete Renal Demographics Patient Name MARIE MORA Date of Study 10/30/2017 Corporate Gender Male Facility Race Unknown Ethnicity Date of 1960 Height Age 56 Weight Accession Number [id number] BSA Room Number BMI Referring Physician Bebe RATLIFF Interpreting Ryan Mendes MD Physician Drafter [employer] Layout Elida Milian RVT Indications Type of Study: Abdominal: Renal, Arterial Duplex Complete Renal. Indications for Study:Renal hypertension. Patient Status:Routine. Study Location:[facility]. Technical Quality:Good visualization. Probe:C5-1 MHZ. [...] Renal Artery This document has an image S/P colonoscopy/EGD 2003 (neg) Hemorrhoids, external Hyperlipemia, mixed Mixed headache Anxiety and depression Dyspepsia Polycythemia vera Overview (04/04/2018): Result type: Hematology/Oncology Note Office Result date: February 21, 2018 14:16 EDT Result status: Modified Result title: F/U: Secondary Erythrocytosis Performed by: Harman PEREZ, MPH, Gail on February 21, 2018 14:33 EDT Verified by: Harman PEREZ, MPH, Gail on February 21, 2018 15:00 EDT Encounter info: [id number], [facility], Recurring OP, 02/20/2018 - [...] for follow-up. He is accompanied by the Pakistani historical interpreter. He is feeling well but thinks [...] by hormonal therapy by Dr. Pond at [facility] of underlying BPH. He recently completed this treatment. Hypertension, dyslipidemia, gastroesophageal reflux disease and stroke twice in the year 1999 and 2001. Past Medical History Problem list All Problems Encounter for screening colonoscopy / SNOMED CT 145726481 / Confirmed Headache / SNOMED CT 49912188 / Confirmed Nasal congestion / SNOMED CT 036425110 / Confirmed Obesity / SNOMED CT 3638264632 / Confirmed JULIA (obstructive sleep apnea) / SNOMED CT 580239532 / Possible Secondary polycythemia / SNOMED CT 615352264 / Confirmed Allergies Allergic Reactions (Selected) Severity [...] Refills 0, Maintenance, 12/29/15 15:20:37 Vitamin D 00204 iu oral capsule: 50,000 International_Units, 1, capsule, [...] with or without colon decompression (separate procedure) (02618) performed by Delta Landin MD on 02/11/2015 at 54 Years. Colonoscopy ([id number]). Comments: 01/13/2015 13:31 - Michael Yoon 2014 Endoscopy ([id number]). Comments: 01/13/2015 13:32 - [place] Yoon with [place] [facility] ([id number]). Social History Social History Tobacco Details: Former smoker, Other: quit 28 years ago. . Review of Systems 14 point ROS negative except as noted in the HPI. Physical Examination Vital Signs Vitals : VITALS 02/21/2018 14:30 EDT Height 167.64 cm Weight 98.2 kg Dry Weight 98.2 kg Body Mass Index 34.94 >HHI Body surface area 2.14 BSA Meagher 2.07 Temperature 97.7 DegF Temperature Route Oral [...] findings and plan as documented in the fellow s note. Lizette Woodard MD Chest pain cardiac cath 04/16 08 negative, stress MIBI 01/2010 negative Resolved Problems Problem Noted Date Diagnosed Date Resolved Date 2018 novel coronavirus disea se (COVID-19) 07/22/2020 [facility] 08/13/2020 05/26/2021 Cerebral infarction 03/07/20 25 Class 2 severe obesity due t o excess calories with serious comorbidity and body mass index (BMI) of 35.0 to 35.9 in adult 5 Immunizations Immunization Administration Dates Next Due Hep B, Adult/Adol (DCPUYDG-Q-GWMNT/RECOMBIVAX-ADULT) 06/18/2009,05/07/2009,02/12/2009,2003,01/22/2004 MMR (MMR II/Priorix) 01/22/2004 TDAP 01/01/2025 Td (adult),2 Lf tetanus toxo id (TDVAX), preservative free 01/22/2004 Social History Tobacco Use Types Packs/Day Years Used Date Smoking Tobacco: Never Smokeless Tobacco: Never Tobacco Cessation:Counseling Given: Not Answered Alcohol Use Standard Drinks/Week Comments No 0 (1 standard drink = 0.6 oz pur e alcohol) Social Connections Answer Date Recorded How often do you feel lonely or isolated from th ose around you? 1 03/06/2024 Financial Resource Strain Answer Date R ecorded Hard to pay for: Food 1 03/06/2024 Stress Answer Date Recorded Do you feel these kinds of stress these days? 1 03/06/2024 Physical Activity Answer Date Recorded Physical Activity 0 04/17/2019 Food Insecurity Answer Date Recorded Hard to pay for: Food 1 03/06/2024 Transportation Needs Answer Date Record ed Hard to pay for: Transportation 1 03/06/2024 Housing Stability Answer Date Recorded Hard to pay for: Rent/Mortgage payment 1 03/06/2024 Safety and Environment Answer Date Mesfin rded Safety 0 04/17/2019 Utilities Answer Date Recorded Hard to pay for: Utilities 1 03/06 Employment Answer Date Recorded Stress 0 03/06/2024 Sex and Gender Information Value Date Recorded Sex Assigned at Male 06/15/2017 7:21 PM PDT Legal Sex Male 11:36 AM PDT Gender Identity Male 06/15/2017 7:21 PM PDT Sexual Orientation Straight 06/15/2017 7: 21 PM PDT Last Filed Vital Signs Vital Sign Reading Time Taken Comments Blood Pressure 138/84 03/07/2025 9:32 AM EDT Pulse 59 03/07/2025 9:32 AM EDT Temperature 36.7 C (98.1 F) 01/01/2025 10:25 AM EDT Respiratory Rate 16 03/07/2025 9:32 AM EDT Oxygen Saturation 97% 03/07/2025 9:32 AM EDT Inhaled Oxygen Concentration - - Weight 98 kg (216 lb) 03/07/2025 9:32 AM EDT Height 167.6 cm (5' 6 ) 03/07/2025 9:32 AM EDT Body Mass Index 34.86 03/07/2025 9:32 AM EDT Plan of Treatment Health Maintenance Due Date Last Done Comments Medicare Annual Wellness Visit 1976 CT Colonography 11/15/2003 Fecal DNA 11/15/2003 Flexible Sigmoidoscopy 11/15/2003 Imm-Pneumococcal 50+ (1 of 1 - PCV) 2008 Imm-Zoster, Recombinant (1 of 2) 2008 FIT/gFOBT 2015 11/13/2014 (Theresa guzman by Outside Provider), 10/30/2013 (Declined) Colonoscopy 02/11/2025 02/11/2015, 02/11/2015 Colorectal Cancer Screening 02/11/2025 Depression Monitoring 04/03/2025 01/01/2025 , 03/06/2024, 10/12/2022, Additional history exists [id number]-58 ( season) 2025 Imm-Influenza (#1) 2025 05/02/2019, 1 (Declined), 10/30/2013 (Declined) Falls Prevention 05/13/2025 05/13/2024 (Man aged by Outside Provider) Diabetes Screening 01/01/2026 01/01/2025, 0 01/01/2025, 03/06/2024, Additional history exists Lipid Screening 01/01/2026 01/01/2025, 02/25, 10/03/2023, Additional history exists Tobacco Screening 03/07/2026 03/07/2025, 05/04/2023 Imm-DTaP/Tdap/Td (2 - Td or Tdap) 01/01/2035 025, 01/22/2004 Imm-Hepatitis B Completed 06/18/2009, 04/28, 02/12/2009, Additional history exists Hepatitis C Screening Completed 07/04/2018 Alcohol and Drug Screen Completed 01/02/20, 03/06/2024, 10/12/2022, Additional history exists Procedures Procedure Name Priority Date/Time Associated Diagnosis Comments REFERRAL SCANNED DOCUMENT 05/13/2025 3:00 AM EDT HEMOGLOBIN GLYCOSYLATED A1C Routine 01/01/2025 11:28 AM EDT Routine general medical examination at a health care facility Polycythemia vera ([facility]) Class 2 severe obesity due to excess calories with serious comorbidity and body mass index (BMI) of 35.0 to 35.9 in adult ([facility]) Essential hypertension, benign Hyperlipemia, mixed Pre-diabetes Mild vitamin D deficiency LIPID PANEL Routine 01/01/2025 11:28 AM EDT Routine general medical examination at a health care facility Polycythemia vera ([facility]) Class 2 severe obesity due to excess calories with serious comorbidity and body mass index (BMI) of 35.0 to 35.9 in adult ([facility]) Essential hypertension, benign Hyperlipemia, mixed Pre-diabetes Mild vitamin D deficiency HEPATITIS C ANTIBODY Routine 07/04/2018 11:23 AM EST Essential hypertension, benign COLONOSCOPY Routine 02/11/2015 5:50 PM EDT from Last 3 Months or Most Recently Relevant to Health Maintenance Results * REFERRAL SCANNED DOCUMENT (05/13/2025 3:00 AM EDT) 05/13/2025 3:00 AM EDT us Bronwyn Albert PA-C SCAN REFERRAL Final Result * (ABNORMAL) HEMOGLOBIN GLYCOSYLATED A1C (01/01/2025 11:28 AM EDT) HEMOGLOBIN A1C 5.9(H) <5.7 % [facility] Comment: For someone without known diabetes, a [...] diabetes for children. Blood Blood / Unknown 01/01/2025 1 1:28 AM EDT 01/01/2025 11:28 AM EDT us Bronwyn Albert PA-C LAB - BLOOD DRAW Final Resul t [facility] [address] [address], [facility] [address] [address] * (ABNORMAL) LIPID PANEL (01/01/2025 11:28 AM EDT) CHOLESTEROL, TOTAL 246(H) <200 mg/dL [facility] HDL CHOLESTEROL 40 > OR = 40 mg/dL [facility] TRIGLYCERIDES 243(H) <150 mg/dL [facility] Comment: If a non-fasting specimen was collected, consider repeat triglyceride testing on a fasting specimen if clinically indicated. Evin et al. J. of Clin. Lipidol. 2015;9:129-169. LDL-CHOLESTEROL 165(H) 99 mg/dL (calc) [facility] Comment: Reference range: <100 Desirable range <100 mg/dL for primary prevention; <70 mg/dL for patients with CHD or diabetic patients with > or = 2 CHD risk factors. LDL-C is now calculated using the Radha calculation, which is a validated novel method providing better accuracy than the Friedewald equation in the estimation of LDL-C. Joshua ESTRELLA et al. GIOVANNI. 2013;310(19): 3407-3896 (http://education.Liebo/faq/BCB328) CHOL/HDLC RATIO 6.2(H) <5.0 (calc) [facility] NON-HDL CHOLESTEROL 206(H) <130 mg/dL (calc) [facility] Comment: For patients with diabetes plus 1 major ASCVD risk factor, treating to a non-HDL-C goal of <100 mg/dL (LDL-C of <70 mg/dL) is considered a therapeutic option. Blood Blood / Unknown 01/01/2025 1 1:28 AM EDT 01/01/2025 11:28 AM EDT us Bronwyn Albert PA-C LAB - BLOOD DRAW Final Resul t [facility] [address] [address], [facility] [address] [address] * HEPATITIS C ANTIBODY (07/04/2018 11:23 AM EST) [facility] HEPATITIS C VIRUS SCREEN NEGATIVE NEGATIVE [facility] Blood specimen (specimen) Blood / Unknown 07/04/2018 11:23 AM EST 07/04/2018 2:06 PM EST Narrative [facility] - 07/04/2018 3:35 PM EST [employer] [address] [place] [address] [place] [id number] ORD# [id number] Bronwyn Albert PA-C LAB - BLOOD DRAW Edited Resu lt - Final [facility] [address] [place] [address], * COLONOSCOPY (02/11/2015 5:50 PM EDT) Impressions Bronwyn Albert PA-C - 02/11/2015 5:50 PM EDT 02/11/2015 by Delta Landin MD. There were no polyps or colon problems. Repeat colonoscopy recommended in 10 years. Provider [facility] PROCEDURES Final Result from Last 3 Months or Most Recently Relevant to Health Maintenance [place] Care Teams Medical Editor Relationship Specialty Start Date End Date Bronwyn Albert PA-C [address] [place] [phone] PCP - General Internal Medicine 10/30/13
--- OUTSIDE RECORDS SUMMARY | 2025-06-23 15:51 | XMS_ITS | Clinical Summary ---
[facility] Organization [facility] Address [address] [place] [address] Care Team Providers Care Sexer Name Role Phone Bronwyn Albert Primary Care Provider [phone] Family History Medical History Relation Name Comments [...] 2008 Zoster Vaccines (1 of 2) 2008 Depression Screening 08/28/2024 COVID-19 Vaccine ( - 2023-2 5 season) 2025 Influenza Vaccine (#1) 2025 RSV Immunization Adult [...] age to complete this topic Care Teams Sexer Relationship Specialty Start Date End Date Bronwyn Albert PA [address] [place] [address] PCP - General Internal Medicine 01/19/10
--- OUTSIDE RECORDS SUMMARY | 2025-06-23 15:51 | XMS_ITS | Encounter Summary ---
Author Organization [facility] Address [address] [place] [address] Care Team Providers Care Corporate Accounting Manager Name Role Phone Bronwyn Albert PA-C Primary Care Provider [phone] Reason for Visit * Reason Comments Correspondence [facility] Encounter Details Date Type Department Care Team ([facility] Contact Info) Description 01/26/2016 Interim Notes [id number] [place] [phone] [phone] [place] [address] Social History Tobacco Use Types Packs/Day Years [...] documented as of this encounter Care Teams Corporate Accounting Manager Relationship Specialty Start Date End Date Bronwyn Albert PA-C [employer] [place] [phone] PCP - General Internal Medicine 10/30/13 documented as of this encounter
== END 2025-06-23 12:33 | disposition home or self-care (01) ==
LOC: HO.BBR 12:32
PROVIDERS: Visit Provider Internal Medicine Hematology
DX: D75.1 Secondary polycythemia (principal)
CPT/HCPCS: 85018; 99195

== ENCOUNTER 2025-08-06 08:39 | Outpatient (AMB) | payer MEDICARE, MEDICAID, SELFPAY ==
--- NOTE | 2025-08-06 09:03 | A.PHYSOV_ITS ---
Vital Signs 08/06/25 09:07 Height 5 ft 6 in Weight 217 lb BMI 35.0 Intake Visit Reasons: f/U after injection 06/06/2025 Intake Note: Patient is a 64 year old male in office today for a follow up after right L5 transforaminal epidural injection 06/06/25 . Bicycle Designer Required: Yes Bicycle Designer Services: Bicycle Designer Offered & Declined Allergies No Known Allergies Allergy (Verified 08/06/25 09:10) HPI Comments Details: Patient returns for follow-up visit for persistent lower back pain and lumbar radiculitis. He has been having pain for many years. He has a history of stroke in 2001 resulting in residual left hemiparesis. He is right-handed. He ambulates with a single-point cane. He reports positive for ?shopping cart? sign. Has been utilizing Biofreeze and lidocaine patches on his lower back with good results. Most recent lumbosacral spine MRI dated back to 04/13/2024 demonstrating bilateral L4 neural foraminal narrowing and right L5 neural foraminal narrowing. Most recent procedure was performed on 06/06/2025. He was initially scheduled for left transforaminal injection, however his symptoms were mostly on the right side in the L5 dermatomal distribution and right L5 transforaminal injection was done. Procedure provided excellent, but unfortunately shortly after benefit. Pain returned 3 weeks later. He has a history of multiple injections that included lumbar facet joint injections, rogers sforaminal and interlaminar injections. He denies any change in bowel bladder habits. He denies any fever or chills. Prior to his most recent procedure he had left SI joint injections in May of 2024. [facility] Medical History (Updated 08/06/25 @ 12:10 by Wade Hopper DO) Lumbar radiculitis Spinal stenosis, lumbar region with neurogenic claudication Social History (Updated 08/06/25 @ 09:08 by Alida Hernandez MA) Household Members: Spouse Alcohol intake: current Alcohol intake frequency: does not drink Patient Tobacco Use Status: Never used Tobacco Current occupational status: employed Review of Systems Narrative Lower back pain, bilateral hip and leg pain with standing and walking, denies change in bowel bladder habits, denies fever or chills, denies uncontrolled depression or suicidal ideation. Physical Exam Exam Exam: Patient appears to be in no acute distress, appropriately conversant oriented. He ambulates without antalgia. He was able to perform heel walk and toe walk with support for balance. Neurological examination was generally nonfocal. Lumbar extension was restricted. Pain with palpation over lumbar paraspinal muscles. Dural tension signs were negative. The SI provocative maneuvers were negative. Cervical range of motion was restricted. Spurling and Lhermitte signs were negative. Patient demonstrated no upper motor neuron signs. Vital Signs: BMI result Body Mass Index 35.0 Assessment & Plan Assessment & Plan (1) Spinal stenosis, lumbar region with neurogenic claudication: Code(s): M48.062 - Spinal stenosis, lumbar region with neurogenic claudication Category: Medical Plan: Bilateral L4 transforaminal epidural steroidal injections (2) Lumbar radiculitis: Code(s): M54.16 - Radiculopathy, lumbar region Category: Medical Plan: Bilateral L4 transforaminal epidural steroidal injections Plan Bilateral L4 transforaminal epidural steroidal injections Scribe Plan - Not visible on output: Treatment options were discussed with the patient in detail. He had excellent results with previously performed lumbar epidural injections. Most recent procedure right L5 transforaminal injection provided only 3 weeks of fairly good results. He reports bilateral radicular symptoms now and L4 dermatomal distribution. Lumbosacral spine MRI is consistent with L4 neural foraminal narrowing. Recommended bilateral L4 transforaminal epidural steroidal injections. He would like to proceed. Risks and benefits of the procedure were discussed with the patient. Potential alternative measures were also discussed. Patient understands that the procedure is completely elective. Potential side effects associated with injectable medications were discussed. All questions were answered to the patient's satisfaction. Coding Level of Care Code Est Pt Level 4 (08150) Complex visit Add On G2211 Diagnoses Spinal stenosis, lumbar region with neurogenic claudication M48.062 Lumbar radiculitis M54.16
[2025-08-06 09:07] VITALS: BMI 35.0
== END 2025-08-06 09:52 | disposition home or self-care (01) ==
LOC: HO.HPHYS 08:39
PROVIDERS: PCP Physician Assistant; Visit Provider Physical Medicine & Rehabilitation
DX: M48.062 Spinal stenosis, lumbar region with neurogenic claudication (principal); M54.16 Radiculopathy, lumbar region
CPT/HCPCS: 99214; G2211

== ENCOUNTER → 2025-08-06 08:39 | Outpatient (BNVA) | payer MEDICARE, MEDICAID, SELFPAY | PROVIDERS: PCP Physician Assistant; Visit Provider Physical Medicine & Rehabilitation | DX: M48.062 Spinal stenosis, lumbar region with neurogenic claudication (principal); M54.16 Radiculopathy, lumbar region | CPT/HCPCS: 99212 ==

== ENCOUNTER 2025-08-19 12:51 | Outpatient (REF) | payer MEDICARE, MEDICAID, SELFPAY ==
--- OUTSIDE RECORDS SUMMARY | 2025-08-19 13:55 | XMS_ITS | Clinical Summary ---
Author Organization [facility] it[facility] Address [id number] [place] [id number] Care Team Providers Care Meters Superintendent Name Role Phone Bronwyn Albert Primary Care Provider [phone] Family History Medical History Relation Name Comments [...] on file Sexual Orientation Not on file Plan of Treatment Health Maintenance Due Date Last Done Comments DTaP,Tdap,and Td Vaccines (1 - Tdap) 1977 Pneumococcal Vaccine: 50+ Ye ars (1 of 1 - PCV) 2008 Zoster Vaccines (1 of 2) 2008 Depression Screening 08/28/2024 COVID-19 Vaccine (1 - 2024-2 6 season) 2025 Influenza Vaccine (#1) 2025 RSV [...] age to complete this topic Care Teams Meters Superintendent Relationship Specialty Start Date End Date Bronwyn Albert PA [address] [place] [phone] PCP - General Internal Medicine 01/19/10
== END 2025-08-19 12:52 | disposition home or self-care (01) ==
LOC: HO.BBR 12:51
PROVIDERS: PCP Physician Assistant; Visit Provider Internal Medicine Hematology
DX: D75.1 Secondary polycythemia (principal)
CPT/HCPCS: 85018